=== PATIENT | female | born 1935 | race Caucasian/White ===

== ENCOUNTER → 2018-01-02 | Outpatient (CLI) | payer OTHER ==
[~2018-01-02] MED LIST: ALLO100; ALLO100 PO; ALLO300 PO; ASPI81EC PO; CALCIUM 500 +1 EAC2 PO; FLUO10 PO; FLUO20 PO; FLUT110OIA INH; FOLI400 PO; Fluoxetine HCl10 M1 PO; LEVSOD100 PO; LISHYD2012 PO; Lisinopril2.5 MG; MULVITMINF PO; Micro-K10 MEQ; POTCHL10ER; Zofran4 MG PO
== END ==
LOC: LAB SHORT 12:45 → LAB 12:45
DX: N39.0 Urinary tract infection, site not specified (principal)
CPT/HCPCS: 87077; 87086; 87186

== ENCOUNTER → 2018-08-07 | Outpatient (CLI) | payer OTHER | END | disposition home or self-care (01) | LOC: LAB SHORT 09:30 → LAB 09:30 | DX: R30.0 Dysuria (principal) | CPT/HCPCS: 87086; 87147 ==

== ENCOUNTER → 2018-09-09 | Outpatient (CLI) | payer OTHER | LOC: LAB SHORT 16:52 → LAB 16:52 | DX: N39.0 Urinary tract infection, site not specified (principal) | CPT/HCPCS: 87086 ==

== ENCOUNTER 2019-03-01 13:04 | Emergency (ER) | payer OTHER ==
[~2019-03-01] VITALS: Ht 162.6 cm; Wt 101.6 kg
[2019-03-01 13:50] LABS: BASOPHILS ABSOLUTE AUTO 0.04 K/mm3 (0.00-0.23); BASOPHILS PERCENT AUTO 0 % (0-2); EOSINOPHILS PERCENT AUTO 3 % (0-6); Hematocrit 39.4 % (33.0-51.0); Hemoglobin 12.5 g/dL (11.5-16.0); IMMATURE GRAN ABSOLUTE AUTO 0.03 K/mm3 (0.00-0.10); IMMATURE GRAN PERCENT AUTO 0 % (0-1); LYMPHOCYTES ABSOLUTE AUTO 2.39 K/mm3 (0.84-5.20); LYMPHOCYTES PERCENT AUTO 24 % (21-46); MONOCYTES ABSOLUTE AUTO 1.02 K/mm3 (0.16-1.47); MONOCYTES PERCENT AUTO 10 % (4-13); Mean Corpuscular HGB 30.5 pg (26.0-34.0); Mean Corpuscular HGB Conc 31.7 g/dL (31.5-36.5); Mean Corpuscular Volume 96 fL (80-100); NEUTROPHILS ABSOLUTE AUTO 6.11 K/mm3 (1.96-9.15); NEUTROPHILS PERCENT AUTO 62 % (41-73); Platelet Count 276 K/mm3 (150-400); RDW Coefficient Variation 13.9 % (11.7-14.2); RDW Standard Deviation 48.8 fL (35.1-46.3); White Blood Cell Count 9.89 K/mm3 (4.00-11.30)
[2019-03-01 14:08] LABS: Albumin, Blood 3.2 g/dL (3.4-5.0); Albumin/Globulin Ratio 0.8 (0.8-1.8); Bilirubin, Total 0.5 mg/dL (0.1-1.0); Bun/Creatinine Ratio 18.6 (12.0-20.0); Calcium, Blood 9.5 mg/dL (8.5-10.1); Creatinine, Blood 1.02 mg/dL (0.40-1.00); Globulin, Blood 3.9 g/dL (2.2-4.0); Total Protein, Blood 7.1 g/dL (6.4-8.2)
== END 2019-03-01 17:38 | disposition home or self-care (01) ==
LOC: ER 13:04
PROVIDERS: Physician Assistant
DX: N99.520 Hemorrhage of incontinent external stoma of urinary tract (principal); Z87.891 Personal history of nicotine dependence; Z79.899 Other long term (current) drug therapy
CPT/HCPCS: 36415; 74177; 80053; 82272; 85025; 86850; 86900; 86901; 99284-25; Q9967

== ENCOUNTER 2020-04-14 10:37 | Inpatient (IN) | payer OTHER ==
[~2020-04-14] VITALS: Ht 162.6 cm; Wt 98.3 kg
[~2020-04-14 10:37] MED LIST changes: +EUTHYROX88 MCG PO; -FLUO10 PO; -LEVSOD100 PO; +LISI20 PO; -Lisinopril2.5 MG; +Prozac20 MG PO
[2020-04-14 11:10] LABS: Calcium, Ionized (POC) 1.31 mmol/L (1.10-1.46); Chloride (POC) 115 mmol/L (98-108); Creatinine (POC) 5.6 mg/dL (0.6-1.0); Glucose (ISTAT POC) 153 mg/dL (70-99); Hemoglobin (POC) 14.6 g/dL (12.0-16.0); Potassium (POC) 5.9 mmol/L (3.5-5.5); Sodium (POC) 134 mmol/L (135-148); Total CO2 (POC) 10 mmol/L (21-32)
[2020-04-14] MEDS ORDERED: ALLO100 PO (11:10)
[2020-04-14 11:27] LABS: Source, Urine Catheter
[2020-04-14 11:28] LABS: BASOPHILS ABSOLUTE AUTO 0.07 K/mm3 (0.00-0.23); BASOPHILS PERCENT AUTO 0 % (0-2); EOSINOPHILS PERCENT AUTO 0 % (0-6); Hematocrit 45.3 % (33.0-51.0); Hemoglobin 13.9 g/dL (11.5-16.0); IMMATURE GRAN ABSOLUTE AUTO 0.34 K/mm3 (0.00-0.10); IMMATURE GRAN PERCENT AUTO 2 % (0-1); LYMPHOCYTES ABSOLUTE AUTO 1.15 K/mm3 (0.84-5.20); LYMPHOCYTES PERCENT AUTO 5 % (21-46); MONOCYTES ABSOLUTE AUTO 0.78 K/mm3 (0.16-1.47); MONOCYTES PERCENT AUTO 4 % (4-13); Mean Corpuscular HGB 30.8 pg (26.0-34.0); Mean Corpuscular HGB Conc 30.7 g/dL (31.5-36.5); Mean Corpuscular Volume 100 fL (80-100); Mean Platelet Volume 11.3 fL (9.1-12.4); NEUTROPHILS ABSOLUTE AUTO 19.02 K/mm3 (1.96-9.15); NEUTROPHILS PERCENT AUTO 89 % (41-73); NRBC ABSOLUTE 0.07 K/mm3 (0.00-0.02); NRBC Auto 0.3 /100 WBC (0.0-0.2); Platelet Count 270 K/mm3 (150-400); RDW Coefficient Variation 15.1 % (11.7-14.2); RDW Standard Deviation 53.2 fL (35.1-46.3); Red Blood Cell Count 4.52 M/mm3 (3.80-5.20); White Blood Cell Count 21.36 K/mm3 (4.00-11.30)
[2020-04-14 11:29] LABS: Albumin, Blood 3.3 g/dL (3.4-5.0); Albumin/Globulin Ratio 0.9 (0.8-1.8); Bilirubin, Total 0.4 mg/dL (0.1-1.0); Bun/Creatinine Ratio 22.3 (12.0-20.0); Calcium, Blood 9.8 mg/dL (8.5-10.1); Creatinine, Blood 4.93 mg/dL (0.40-1.00); Globulin, Blood 3.8 g/dL (2.2-4.0); Potassium, Blood 5.8 mmol/L (3.5-5.5); Total Protein, Blood 7.1 g/dL (6.4-8.2)
[2020-04-14 11:37] LABS: Appearance, Urine Clear (Clear); Bilirubin, Urine Neg (Neg); Blood, Urine Neg (Neg); Color, Urine Yellow (P-Yellow); Glucose Qualitative, Urine Neg (Neg); Ketones, Urine Neg (Neg); Leukocyte Esterase, Urine 1+ (Neg); Nitrite, Urine Neg (Neg); Protein, Urine 3+ (Neg); Specific Gravity, Urine 1.025 (1.003-1.022); Urobilinogen, Urine NORM (Normal)
[2020-04-14 11:52] LABS: Amorphous Mod (0-Heavy); Bacteria Few /hpf; Hyaline Casts 0-2 /lpf (0-2); Red Blood Cells, Urine 0-2 /hpf (0-2); Squamous Epithelial Cells Rare /hpf (Few)
[2020-04-14] MEDS ORDERED: Flovent Disku100 MCG INH ×2 (13:34→13:54)
[2020-04-14 14:14] LABS: Hematocrit 42.8 % (33.0-51.0); Hemoglobin 14.1 g/dL (11.5-16.0)
[2020-04-14 18:57] LABS: Hematocrit 41.8 % (33.0-51.0)
[2020-04-14 19:04] LABS: Albumin, Blood 2.9 g/dL (3.4-5.0); Anion Gap 13 mmol/L (6-16); Blood Urea Nitrogen 106 mg/dL (8-24); Bun/Creatinine Ratio 23.6 (12.0-20.0); CO2, Blood 7 mmol/L (21-32); Calcium, Blood 9.3 mg/dL (8.5-10.1); Chloride, Blood 117 mmol/L (98-108); Creatinine, Blood 4.49 mg/dL (0.40-1.00); Glomerular Filtration Rate 10 (60-); Glucose, Blood 98 mg/dL (70-99); Phosphorus, Blood 5.8 mg/dL (2.5-4.9); Potassium, Blood 5.3 mmol/L (3.5-5.5); Sodium, Blood 137 mmol/L (136-145)
[2020-04-14 20:42] LABS: Base Excess Venous -21.1 mmol/L; Bicarbonate Venous 10.5 mmol/L (24.0-30.0); PO2 Venous 73.5 mmHg (38-42)
[2020-04-14 20:43] LABS: pH Blood Venous 7.12 (7.34-7.37)
[2020-04-15 06:15] LABS: Base Excess Venous -18.8 mmol/L; Bicarbonate Venous 11.9 mmol/L (24.0-30.0); PCO2 Venous 23.1 mmHg (38-42); PO2 Venous 72.8 mmHg (38-42)
[2020-04-15 06:28] LABS: BASOPHILS ABSOLUTE AUTO 0.05 K/mm3 (0.00-0.23); BASOPHILS PERCENT AUTO 0 % (0-2); EOSINOPHILS ABSOLUTE AUTO 0.01 K/mm3 (0.00-0.68); EOSINOPHILS PERCENT AUTO 0 % (0-6); Hematocrit 37.9 % (33.0-51.0); Hemoglobin 12.3 g/dL (11.5-16.0); IMMATURE GRAN ABSOLUTE AUTO 0.33 K/mm3 (0.00-0.10); IMMATURE GRAN PERCENT AUTO 2 % (0-1); LYMPHOCYTES ABSOLUTE AUTO 1.39 K/mm3 (0.84-5.20); LYMPHOCYTES PERCENT AUTO 7 % (21-46); MONOCYTES ABSOLUTE AUTO 1.45 K/mm3 (0.16-1.47); MONOCYTES PERCENT AUTO 7 % (4-13); Mean Corpuscular HGB 30.9 pg (26.0-34.0); Mean Corpuscular HGB Conc 32.5 g/dL (31.5-36.5); Mean Platelet Volume 11.2 fL (9.1-12.4); NEUTROPHILS ABSOLUTE AUTO 18.11 K/mm3 (1.96-9.15); NEUTROPHILS PERCENT AUTO 85 % (41-73); NRBC ABSOLUTE 0.03 K/mm3 (0.00-0.02); NRBC Auto 0.1 /100 WBC (0.0-0.2); Platelet Count 252 K/mm3 (150-400); RDW Coefficient Variation 15.2 % (11.7-14.2); RDW Standard Deviation 50.7 fL (35.1-46.3); Red Blood Cell Count 3.98 M/mm3 (3.80-5.20); White Blood Cell Count 21.34 K/mm3 (4.00-11.30)
[2020-04-15 06:37] LABS: Mean Corpuscular Volume 95 fL (80-100)
[2020-04-15 06:59] LABS: Bun/Creatinine Ratio 27.2 (12.0-20.0); Calcium, Blood 9.6 mg/dL (8.5-10.1); Potassium, Blood 4.9 mmol/L (3.5-5.5)
[2020-04-15 11:18] LABS: Source, Urine Catheter
[2020-04-15 11:22] LABS: Appearance, Urine Clear (Clear); Bilirubin, Urine Neg (Neg); Blood, Urine 2+ (Neg); Color, Urine Yellow (P-Yellow); Glucose Qualitative, Urine Neg (Neg); Ketones, Urine Neg (Neg); Leukocyte Esterase, Urine Neg (Neg); Nitrite, Urine Neg (Neg); Protein, Urine 3+ (Neg); Urobilinogen, Urine NORM (Normal)
[2020-04-15 11:24] LABS: Albumin, Blood 2.5 g/dL (3.4-5.0); Anion Gap 11 mmol/L (6-16); Blood Urea Nitrogen 104 mg/dL (8-24); Bun/Creatinine Ratio 28.3 (12.0-20.0); CO2, Blood 11 mmol/L (21-32); Calcium, Blood 8.8 mg/dL (8.5-10.1); Chloride, Blood 121 mmol/L (98-108); Creatinine, Blood 3.68 mg/dL (0.40-1.00); Glomerular Filtration Rate 12 (60-); Glucose, Blood 77 mg/dL (70-99); Phosphorus, Blood 4.8 mg/dL (2.5-4.9); Potassium, Blood 4.7 mmol/L (3.5-5.5); Sodium, Blood 143 mmol/L (136-145)
[2020-04-15 11:32] LABS: Bacteria Few /hpf; Squamous Epithelial Cells Rare /hpf (Few)
[2020-04-15 11:33] LABS: Amorphous Light (0-Heavy)
[2020-04-15 18:21] LABS: Source, Urine Catheter
[2020-04-15 18:27] LABS: Appearance, Urine Hazy (Clear); Bilirubin, Urine Neg (Neg); Blood, Urine 2+ (Neg); Color, Urine Yellow (P-Yellow); Glucose Qualitative, Urine Neg (Neg); Ketones, Urine Neg (Neg); Leukocyte Esterase, Urine 1+ (Neg); Nitrite, Urine Neg (Neg); Protein, Urine 3+ (Neg); Urobilinogen, Urine NORM (Normal)
[2020-04-15 18:39] LABS: Amorphous Mod (0-Heavy); Bacteria Few /hpf; Red Blood Cells, Urine 0-2 /hpf (0-2); Squamous Epithelial Cells Rare /hpf (Few)
[2020-04-16 09:09] LABS: BASOPHILS ABSOLUTE AUTO 0.04 K/mm3 (0.00-0.23); BASOPHILS PERCENT AUTO 0 % (0-2); EOSINOPHILS ABSOLUTE AUTO 0.09 K/mm3 (0.00-0.68); EOSINOPHILS PERCENT AUTO 1 % (0-6); Hematocrit 33.4 % (33.0-51.0); Hemoglobin 10.5 g/dL (11.5-16.0); IMMATURE GRAN ABSOLUTE AUTO 0.25 K/mm3 (0.00-0.10); IMMATURE GRAN PERCENT AUTO 2 % (0-1); LYMPHOCYTES ABSOLUTE AUTO 1.94 K/mm3 (0.84-5.20); LYMPHOCYTES PERCENT AUTO 13 % (21-46); MONOCYTES ABSOLUTE AUTO 1.11 K/mm3 (0.16-1.47); MONOCYTES PERCENT AUTO 7 % (4-13); Mean Corpuscular HGB Conc 31.4 g/dL (31.5-36.5); Mean Corpuscular Volume 99 fL (80-100); Mean Platelet Volume 11.2 fL (9.1-12.4); NEUTROPHILS ABSOLUTE AUTO 11.56 K/mm3 (1.96-9.15); NEUTROPHILS PERCENT AUTO 77 % (41-73); NRBC ABSOLUTE 0.02 K/mm3 (0.00-0.02); NRBC Auto 0.1 /100 WBC (0.0-0.2); Platelet Count 209 K/mm3 (150-400); RDW Coefficient Variation 15.8 % (11.7-14.2); RDW Standard Deviation 53.8 fL (35.1-46.3); Red Blood Cell Count 3.39 M/mm3 (3.80-5.20); White Blood Cell Count 14.99 K/mm3 (4.00-11.30)
[2020-04-16 09:30] LABS: Albumin, Blood 2.4 g/dL (3.4-5.0); Blood Urea Nitrogen 93 mg/dL (8-24); Bun/Creatinine Ratio 30.2 (12.0-20.0); Calcium, Blood 8.5 mg/dL (8.5-10.1); Chloride, Blood 126 mmol/L (98-108); Creatinine, Blood 3.08 mg/dL (0.40-1.00); Glomerular Filtration Rate 15 (60-); Glucose, Blood 65 mg/dL (70-99); Phosphorus, Blood 4.8 mg/dL (2.5-4.9); Potassium, Blood 4.8 mmol/L (3.5-5.5); Sodium, Blood 147 mmol/L (136-145)
[2020-04-16 09:32] LABS: Anion Gap 12 mmol/L (6-16); CO2, Blood 9 mmol/L (21-32)
[2020-04-16 19:06] LABS: Albumin, Blood 2.3 g/dL (3.4-5.0); Anion Gap 12 mmol/L (6-16); Blood Urea Nitrogen 84 mg/dL (8-24); Bun/Creatinine Ratio 32.6 (12.0-20.0); CO2, Blood 10 mmol/L (21-32); Calcium, Blood 8.6 mg/dL (8.5-10.1); Chloride, Blood 122 mmol/L (98-108); Creatinine, Blood 2.58 mg/dL (0.40-1.00); Glomerular Filtration Rate 19 (60-); Glucose, Blood 73 mg/dL (70-99); Phosphorus, Blood 4.4 mg/dL (2.5-4.9); Potassium, Blood 4.5 mmol/L (3.5-5.5); Sodium, Blood 144 mmol/L (136-145)
[2020-04-17 05:08] LABS: BASOPHILS ABSOLUTE AUTO 0.02 K/mm3 (0.00-0.23); BASOPHILS PERCENT AUTO 0 % (0-2); EOSINOPHILS ABSOLUTE AUTO 0.24 K/mm3 (0.00-0.68); EOSINOPHILS PERCENT AUTO 2 % (0-6); Hematocrit 33.3 % (33.0-51.0); IMMATURE GRAN ABSOLUTE AUTO 0.23 K/mm3 (0.00-0.10); IMMATURE GRAN PERCENT AUTO 2 % (0-1); LYMPHOCYTES ABSOLUTE AUTO 1.75 K/mm3 (0.84-5.20); LYMPHOCYTES PERCENT AUTO 17 % (21-46); MONOCYTES ABSOLUTE AUTO 0.74 K/mm3 (0.16-1.47); MONOCYTES PERCENT AUTO 7 % (4-13); NEUTROPHILS ABSOLUTE AUTO 7.61 K/mm3 (1.96-9.15); NEUTROPHILS PERCENT AUTO 72 % (41-73); NRBC ABSOLUTE 0.02 K/mm3 (0.00-0.02); NRBC Auto 0.2 /100 WBC (0.0-0.2); RDW Coefficient Variation 15.7 % (11.7-14.2); RDW Standard Deviation 51.4 fL (35.1-46.3); Red Blood Cell Count 3.55 M/mm3 (3.80-5.20); White Blood Cell Count 10.59 K/mm3 (4.00-11.30)
[2020-04-17 05:11] LABS: Mean Corpuscular Volume 94 fL (80-100); Mean Platelet Volume 11.8 fL (9.1-12.4); Platelet Count 187 K/mm3 (150-400)
[2020-04-17 05:19] LABS: Albumin, Blood 2.3 g/dL (3.4-5.0); Anion Gap 11 mmol/L (6-16); Blood Urea Nitrogen 74 mg/dL (8-24); Bun/Creatinine Ratio 32.9 (12.0-20.0); CO2, Blood 15 mmol/L (21-32); Calcium, Blood 8.3 mg/dL (8.5-10.1); Chloride, Blood 123 mmol/L (98-108); Creatinine, Blood 2.25 mg/dL (0.40-1.00); Glomerular Filtration Rate 22 (60-); Glucose, Blood 64 mg/dL (70-99); Potassium, Blood 4.2 mmol/L (3.5-5.5); Sodium, Blood 149 mmol/L (136-145)
[2020-04-18 09:46] LABS: BASOPHILS ABSOLUTE AUTO 0.05 K/mm3 (0.00-0.23); BASOPHILS PERCENT AUTO 1 % (0-2); EOSINOPHILS PERCENT AUTO 3 % (0-6); Hematocrit 31.3 % (33.0-51.0); Hemoglobin 10.2 g/dL (11.5-16.0); IMMATURE GRAN ABSOLUTE AUTO 0.39 K/mm3 (0.00-0.10); IMMATURE GRAN PERCENT AUTO 4 % (0-1); LYMPHOCYTES ABSOLUTE AUTO 1.52 K/mm3 (0.84-5.20); LYMPHOCYTES PERCENT AUTO 16 % (21-46); MONOCYTES ABSOLUTE AUTO 0.67 K/mm3 (0.16-1.47); MONOCYTES PERCENT AUTO 7 % (4-13); Mean Corpuscular HGB 30.5 pg (26.0-34.0); Mean Corpuscular HGB Conc 32.6 g/dL (31.5-36.5); Mean Corpuscular Volume 94 fL (80-100); Mean Platelet Volume 11.7 fL (9.1-12.4); NEUTROPHILS ABSOLUTE AUTO 6.72 K/mm3 (1.96-9.15); NEUTROPHILS PERCENT AUTO 70 % (41-73); NRBC ABSOLUTE 0.05 K/mm3 (0.00-0.02); NRBC Auto 0.5 /100 WBC (0.0-0.2); Platelet Count 221 K/mm3 (150-400); RDW Coefficient Variation 15.3 % (11.7-14.2); RDW Standard Deviation 49.5 fL (35.1-46.3); Red Blood Cell Count 3.34 M/mm3 (3.80-5.20); White Blood Cell Count 9.65 K/mm3 (4.00-11.30)
[2020-04-18 10:13] LABS: Albumin, Blood 2.3 g/dL (3.4-5.0); Anion Gap 10 mmol/L (6-16); Blood Urea Nitrogen 46 mg/dL (8-24); Bun/Creatinine Ratio 29.7 (12.0-20.0); CO2, Blood 22 mmol/L (21-32); Calcium, Blood 8.3 mg/dL (8.5-10.1); Chloride, Blood 110 mmol/L (98-108); Creatinine, Blood 1.55 mg/dL (0.40-1.00); Glomerular Filtration Rate 34 (60-); Glucose, Blood 115 mg/dL (70-99); Phosphorus, Blood 2.4 mg/dL (2.5-4.9); Potassium, Blood 3.8 mmol/L (3.5-5.5); Sodium, Blood 142 mmol/L (136-145)
[2020-04-18 10:37] LABS: Influenza A, PCR Negative (NEGATIVE); Influenza B, PCR Negative (NEGATIVE); Resp Syncytial Virus, PCR Negative (NEGATIVE); SARS-Cov-2 (COVID-19) PCR, MMC Negative (NEGATIVE)
[2020-04-18] MEDS ORDERED: SODBIC650 PO (12:07)
== END 2020-04-18 16:02 | DRG 682 ==
LOC: ER 10:37 → MEDS 13:29 → ICUE 21:27 → MEDS 04-15 12:36
PROVIDERS: Emergency Medicine; Family Medicine; Internal Medicine; ADMIT Internal Medicine
DX: N17.9 Acute kidney failure, unspecified (principal); G92 Toxic encephalopathy; A41.9 Sepsis, unspecified organism; E87.2 Acidosis; Z68.41 Body mass index [BMI] 40.0-44.9, adult; Z20.828 Contact with and (suspected) exposure to other viral communicable diseases; R65.10 Systemic inflammatory response syndrome (SIRS) of non-infectious origin without acute organ dysfunction; N18.30 Chronic kidney disease, stage 3 unspecified; I12.9 Hypertensive chronic kidney disease with stage 1 through stage 4 chronic kidney disease, or unspecified chronic kidney disease; E87.5 Hyperkalemia; J44.9 Chronic obstructive pulmonary disease, unspecified; E03.9 Hypothyroidism, unspecified; G47.33 Obstructive sleep apnea (adult) (pediatric); E78.5 Hyperlipidemia, unspecified; R40.2412 Glasgow coma scale score 13-15, at arrival to emergency department; E66.9 Obesity, unspecified; E86.0 Dehydration; Z93.3 Colostomy status; Z99.81 Dependence on supplemental oxygen; Z87.891 Personal history of nicotine dependence
CPT/HCPCS: 0241U; 36415; 51701; 71045; 76770; 80047; 80048; 80053; 80069; 81001; 82803; 83605; 84145; 84439; 85014; 85018; 85025; 87040; 87086; 94660; 94762; 96360; 96361; 97110; 97116; 97162; 97165; 97530; 99285-25; A9270; A9270-GY; C1751; C9113; J0456; J0696; J1650; J7030; J7050; J7070

== ENCOUNTER 2020-05-07 20:42 | Inpatient (IN) | payer OTHER ==
[~2020-05-07] VITALS: Ht 167.6 cm; Wt 108.9 kg
[~2020-05-07 20:42] MED LIST changes: +Flovent Disku100 MCG INH; +SODBIC650 PO
[2020-05-07] MEDS ORDERED: FURO40 PO ×2 (21:13)
[2020-05-07] MEDS ORDERED: PANT40 PO ×2 (21:13)
[2020-05-07] MEDS ORDERED: ALUMINUM H320 MG/5 M PO (21:14)
[2020-05-07] MEDS ORDERED: POTA10T PO ×2 (21:14)
[2020-05-07] MEDS ORDERED: Acetaminophen325 M1 PO ×2 (21:15)
[2020-05-07] MEDS ORDERED: Prozac40 MG PO ×2 (21:16)
[2020-05-07] MEDS ORDERED: LEVSOD88 PO ×2 (21:16)
[2020-05-07] MEDS ORDERED: Flovent Disku100 MCG INH ×2 (21:17)
[2020-05-07 21:47] LABS: BASOPHILS ABSOLUTE AUTO 0.06 K/mm3 (0.00-0.23); BASOPHILS PERCENT AUTO 1 % (0-2); EOSINOPHILS ABSOLUTE AUTO 0.09 K/mm3 (0.00-0.68); EOSINOPHILS PERCENT AUTO 1 % (0-6); Hematocrit 33.9 % (33.0-51.0); Hemoglobin 10.4 g/dL (11.5-16.0); IMMATURE GRAN ABSOLUTE AUTO 0.16 K/mm3 (0.00-0.10); IMMATURE GRAN PERCENT AUTO 2 % (0-1); LYMPHOCYTES ABSOLUTE AUTO 1.17 K/mm3 (0.84-5.20); LYMPHOCYTES PERCENT AUTO 13 % (21-46); MONOCYTES ABSOLUTE AUTO 0.88 K/mm3 (0.16-1.47); MONOCYTES PERCENT AUTO 10 % (4-13); Mean Corpuscular HGB Conc 30.7 g/dL (31.5-36.5); Mean Corpuscular Volume 98 fL (80-100); NEUTROPHILS ABSOLUTE AUTO 6.81 K/mm3 (1.96-9.15); NEUTROPHILS PERCENT AUTO 74 % (41-73); Platelet Count 363 K/mm3 (150-400); RDW Coefficient Variation 14.9 % (11.7-14.2); RDW Standard Deviation 53.3 fL (35.1-46.3); Red Blood Cell Count 3.47 M/mm3 (3.80-5.20); White Blood Cell Count 9.17 K/mm3 (4.00-11.30)
[2020-05-07 22:05] LABS: Bun/Creatinine Ratio 11.2 (12.0-20.0); Calcium, Blood 9.4 mg/dL (8.5-10.1); Creatinine, Blood 1.43 mg/dL (0.40-1.00); Potassium, Blood 3.6 mmol/L (3.5-5.5)
[2020-05-07 22:48] LABS: Source, Urine Clean Catch
[2020-05-07 22:50] LABS: Appearance, Urine Clear (Clear); Bilirubin, Urine Neg (Neg); Blood, Urine 1+ (Neg); Color, Urine Yellow (P-Yellow); Glucose Qualitative, Urine Neg (Neg); Ketones, Urine Neg (Neg); Leukocyte Esterase, Urine 2+ (Neg); Nitrite, Urine Neg (Neg); Protein, Urine 4+ (Neg); Urobilinogen, Urine NORM (Normal)
[2020-05-07 22:56] LABS: Bacteria Mod /hpf; Hyaline Casts 0-2 /lpf (0-2); Red Blood Cells, Urine 0-2 /hpf (0-2); Squamous Epithelial Cells Not Seen /hpf (Few)
[2020-05-08] MEDS ORDERED: LISI20 PO ×2 (00:50)
--- NOTE | 2020-05-08 02:08 | NUR ---
PATIENT ARRIVED ON UNIT FROM ER AT 1230 ON 05/08/20 FOR A LEFT HIP FX. SHE IS ALERT AND ORIENTED X3-4. PATIENT CAN BE CONFUSED WHICH IS HER BASELINE. HER DAUGHTER CAME IN THE ROOM WITH HER AND GAVE MORE DETAILED INFORMATION ABOUT PATIENT'S HX. PATIENT DENIED ANY PAIN AT THIS TIME. VITALS ARE WNL. PATIENT SIGNED BLOOD AND VERBAL RELEASE CONSENT. HER ILEOSTOMY IS IN HER RUQ. SHE REPORTS HAVING THAT ILEOSTOMY SINCE SHE WAS 14 YEARS OLD. IT HAS LIGHT BROWN OUTPUT THAT IS LIQUID. THE STOMA WAS ALSO PASSING GAS. STOMA IS PINK AND INTACT. LEFT LEG HAS STRONG PULSES AND SHE IS ABLE TO WIGGLE TOES. SHE DENIES ANY NUMBNESS OR TINGLING. PEAK PAIN IS WHEN THE LEG IS MOVED OR SHIFTED. CALL LIGHT WITHIN REACH. SHE VERBALIZED UNDERSTANDING OF HOW TO USE CALL LIGHT. BED ALARM IS ON.
--- NOTE | 2020-05-08 03:39 | NUR ---
SHIFT SUMMARY: LEFT HIP FX NO SIGNIFICANT CHANGES SINCE ARRIVING ON UNIT. PATIENT IS ALERT AND ORIENTED X3-4. SHE CAN BE CONFUSED AT TIMES. RE-ORIENTS EASILY WHEN CONFUSED. BED ALARM ON. SHE HAS BEEN NPO SINCE MIDNIGHT. VS ARE WNL AND IS ON 2L OXYGEN ON NC. SHE WEARS OXYGEN AT HOME BETWEEN 1-3L OXYGEN. PAIN IS CONTROLLED WITH PO TYLENOL. SHE DOES HAVE IV NARCOTICS PRN. SHE HAS A KHAN PLACED THAT IS PATENT WITH YELLOW URINE OUTPUT IN KHAN BAG. SHE DENIES ANY NUMBNESS OR TINGLING IN LEFT LEG/HIP. PATIENT IS ABLE TO WIGGLE TOES AND FINGERS. PATIENT HAS BEEN ASLEEP MAJORITY OF THE SHIFT BUT IS EASILY AROUSABLE. CALL LIGHT WITHIN REACH. THE PLAN IS FOR SURGERY TODAY WITH DR. LAWTON.
[2020-05-08 04:18] LABS: BASOPHILS ABSOLUTE AUTO 0.03 K/mm3 (0.00-0.23); BASOPHILS PERCENT AUTO 0 % (0-2); EOSINOPHILS ABSOLUTE AUTO 0.03 K/mm3 (0.00-0.68); EOSINOPHILS PERCENT AUTO 0 % (0-6); Hematocrit 28.8 % (33.0-51.0); IMMATURE GRAN ABSOLUTE AUTO 0.16 K/mm3 (0.00-0.10); IMMATURE GRAN PERCENT AUTO 2 % (0-1); LYMPHOCYTES ABSOLUTE AUTO 1.61 K/mm3 (0.84-5.20); LYMPHOCYTES PERCENT AUTO 16 % (21-46); MONOCYTES ABSOLUTE AUTO 1.06 K/mm3 (0.16-1.47); MONOCYTES PERCENT AUTO 11 % (4-13); Mean Corpuscular HGB 30.3 pg (26.0-34.0); Mean Corpuscular HGB Conc 31.3 g/dL (31.5-36.5); Mean Corpuscular Volume 97 fL (80-100); Mean Platelet Volume 10.3 fL (9.1-12.4); NEUTROPHILS ABSOLUTE AUTO 7.11 K/mm3 (1.96-9.15); NEUTROPHILS PERCENT AUTO 71 % (41-73); Platelet Count 330 K/mm3 (150-400); RDW Coefficient Variation 14.8 % (11.7-14.2); RDW Standard Deviation 52.5 fL (35.1-46.3); Red Blood Cell Count 2.97 M/mm3 (3.80-5.20)
[2020-05-08 04:37] LABS: Albumin, Blood 2.5 g/dL (3.4-5.0); Albumin/Globulin Ratio 0.9 (0.8-1.8); Bilirubin, Total 0.4 mg/dL (0.1-1.0); Bun/Creatinine Ratio 11.9 (12.0-20.0); Calcium, Blood 8.7 mg/dL (8.5-10.1); Creatinine, Blood 1.43 mg/dL (0.40-1.00); Globulin, Blood 2.9 g/dL (2.2-4.0); Potassium, Blood 3.5 mmol/L (3.5-5.5); Total Protein, Blood 5.4 g/dL (6.4-8.2)
--- NOTE | 2020-05-08 08:35 | NUR ---
DR JIANG HERE SEE PT RECENTLY.
--- NOTE | 2020-05-08 14:45 | NUR ---
FAMILY HERE PT MED FOR PAIN WITH SIP OF WATER. PT REMAINS TO BE NPO AT THIS TIME. PAS IN PLACE. IV AT TKO.
--- NOTE | 2020-05-08 15:32 | NUR ---
DR LAWTON RECENTLY TO SEE PT, REPORTS NO SURGERY THAT PT MAY HAVE DIET. SEE ORDERS. PT GIVEN ICE WATER UPON REQ, DENIES OTHER NEED.
--- NOTE | 2020-05-08 17:48 | NUR ---
SHIFT SUMMARY PT NOW EATING DINNER WITHOUT DIFFICULTY. PT BEEN RESTING QUIETLY. PT REPOSITIONED MULT TIMES TODAY, BUT AT TIMES REPORTED SHE DID NOT WANT TO BE REPOSITIONED. PT FAMILY HERE EARLIER TODAY. DR NARAYAN LAWTON HERE TO SEE PT TODAY WHEN FAMILY WAS HERE, NO PLAN FOR SURGERY AT THIS TIME. PT BEEN ASSISTED WITH ADL'S PRN. PT HAS PAS IN PLACE.
--- NOTE | 2020-05-08 17:53 | NUR ---
TELE REMAINS IN PLACE.
--- NOTE | 2020-05-09 03:31 | NUR ---
SHIFT SUMMARY: LEFT HIP FRACTURE PATIENT IS ALERT AND ORIENTED X3 WHILE AWAKE. SHE CAN BE CONFUSED AT TIMES BUT IS EASILY ORIENTED. SHE HAS BEEN ASLEEP MAJORITY OF THE SHIFT BUT IS EASILY AROUSABLE. HER VITALS ARE WNL AND ON 2L OXYGEN WHICH AT BASELINE SHE USES 1-3L OXYGEN AT HOME. PAIN IS CONTROLLED WITH PO TYLENOL AND REPOSITIONING OF PILLOWS. SHE IS TOLERATING PO INTAKE. HER KHAN IS PATENT AND IS DRAINING YELLOW URINE INTO KHAN BAG. NO KINKS IN TUBING. SHE HAS HER SCD'S ON. CALLS APPROPRIATELY. CALL LIGHT WITHIN REACH. PATIENT DENIES NUMBNESS AND TINGLING. SHE IS ABLE TO WIGGLE TOES AND FINGERS. THE PLAN IS TO CONTINUE PAIN CONTROL AND ENCOURAGE INCREASE IN PO FLUIDS WELL INSPIRAMETER USE.
[2020-05-09 04:55] LABS: BASOPHILS ABSOLUTE AUTO 0.04 K/mm3 (0.00-0.23); BASOPHILS PERCENT AUTO 0 % (0-2); EOSINOPHILS ABSOLUTE AUTO 0.13 K/mm3 (0.00-0.68); EOSINOPHILS PERCENT AUTO 1 % (0-6); Hematocrit 29.4 % (33.0-51.0); IMMATURE GRAN ABSOLUTE AUTO 0.17 K/mm3 (0.00-0.10); IMMATURE GRAN PERCENT AUTO 2 % (0-1); LYMPHOCYTES ABSOLUTE AUTO 1.29 K/mm3 (0.84-5.20); LYMPHOCYTES PERCENT AUTO 14 % (21-46); MONOCYTES ABSOLUTE AUTO 1.16 K/mm3 (0.16-1.47); MONOCYTES PERCENT AUTO 13 % (4-13); Mean Corpuscular HGB 30.9 pg (26.0-34.0); Mean Corpuscular HGB Conc 30.6 g/dL (31.5-36.5); Mean Corpuscular Volume 101 fL (80-100); Mean Platelet Volume 10.3 fL (9.1-12.4); NEUTROPHILS ABSOLUTE AUTO 6.46 K/mm3 (1.96-9.15); NEUTROPHILS PERCENT AUTO 70 % (41-73); Platelet Count 306 K/mm3 (150-400); RDW Coefficient Variation 14.7 % (11.7-14.2); RDW Standard Deviation 55.1 fL (35.1-46.3); Red Blood Cell Count 2.91 M/mm3 (3.80-5.20); White Blood Cell Count 9.25 K/mm3 (4.00-11.30)
[2020-05-09 05:31] LABS: Bun/Creatinine Ratio 14.2 (12.0-20.0); Creatinine, Blood 1.27 mg/dL (0.40-1.00); Potassium, Blood 3.6 mmol/L (3.5-5.5)
--- NOTE | 2020-05-09 19:48 | NUR ---
END OF SHIFT SUMMARY: PATIENT ALERT AND ORIENTED WITH SOME FORGETFULNESS AT THE END OF SHIFT. PATIENT REPORTS HIGH PAIN WITH REPOSITION AND MOBILITY IN THE LEFT HIP. PATIENT AND FAMILY WORKED WITH PT TODAY TO GET UP TO THE CHAIR AND DISCUSS AMBULATION AND MOVEMENT. PATIENT AND DAUGHTER ARE REQUESTING THAT THE PATIENT BE DISCHARGED TO HOME WITH H/H. THE DAUGHTER REPORTS THAT TWO PEOPLE WILL BE AT THE HOME TO ASSIST THE PATIENT ( AND ONE OF THE PATIENT'S DAUGHTERS). THE DAUGHTER WAS ATTENTIVE AND PARTICIPATED IN HELPING THE PATIENT WITH TRANSFERS AND REPOSITIONING IN THE BED. PATIENT REPORTED THAT SHE CARES FOR HER OSTOMY HERSELF. PATIENT REPORTED A DECREASE IN APPETITE, BUT WAS ABLE TO EAT BREAKFAST AND DINNER. PATIENT UTILIZED 2L VIA NC THROUGHOUT THE SHIFT. PATIENT UTILIZED HER HOME CPAP LAST NIGHT.
--- NOTE | 2020-05-10 04:58 | NUR ---
SHIFT SUMMARY PT ALERT AND ORIENT W/ SOME FORGETFULNESS. SHE REPORTS SEEING HER WALKING AROUND THE ROOM. PT EASILY TO REORIENT. SHE REPORTS MINIMAL PAIN. PAIN MANAGED WITH TYENOL Q6. REPOSITIONED Q2. VSS. SHE WAS HYPOTENSIVE AT THE BEGINNING OF THE SHIFT. CALLED ABIMBOLA BOSS FLUID ORDERED. INFUSED AND BP IMPROVED BUT STILL LOW. BP WAS 97/63 THIS MORNING. PT DENIES CHEST PAIN/PRESSURE, SOB, NUMBNESS AND TINGLING SENSATION. SHE ALSO DENIES NAUSEA AND VOMITING. ENCOURAGE PO FLUIDS. SHE SLEPT GOOD T/O SHIFT. SHE USED HER CPAP MACHINE. OSTOMY IN PLACED AND INTACT. CALL LIGHT W/IN REACH.
[2020-05-10] MEDS ORDERED: XARELTO20 MG PO ×2 (09:43)
[2020-05-10] MEDS ORDERED: TRAM50 PO ×2 (09:44)
--- NOTE | 2020-05-10 15:54 | NUR ---
0187 DISCHARGE DISCHARGE TO HOME WITH DAUGHTER. REVIEWED DISCHARGE INSTRUCTIONS AND PATIENT AND DAUGHTER VERBALIZE UNDERSTANDING OF. PT MODERATE 2 PERSON ASSIST TO WHEELCHAIR. GAIT BELT SENT HOME WITH PATIENT AND PATIENTS DAUGHTER EDUCATED ON HOW TO USE GAIT BELT.
[2020-05-10] MEDS ORDERED: ALLOPURINOL100 M1 PO (18:06)
[2020-05-10] MEDS ORDERED: LISI5 PO (18:07)
[2020-05-10] MEDS ORDERED: ZESTRIL40 M1 PO (20:09)
== END 2020-05-10 16:20 | disposition home or self-care (01) | DRG 536 ==
LOC: ER 20:42 → SURS 23:44 → ER 05-08 00:08 → SURS 05-08 00:08
PROVIDERS: Emergency Medicine; Internal Medicine; ADMIT Internal Medicine
DX: S72.112A Displaced fracture of greater trochanter of left femur, initial encounter for closed fracture (principal); M97.02XA Periprosthetic fracture around internal prosthetic left hip joint, initial encounter; E03.9 Hypothyroidism, unspecified; E78.5 Hyperlipidemia, unspecified; Z20.822 Contact with and (suspected) exposure to COVID-19; F32.9 Major depressive disorder, single episode, unspecified; G47.33 Obstructive sleep apnea (adult) (pediatric); I12.9 Hypertensive chronic kidney disease with stage 1 through stage 4 chronic kidney disease, or unspecified chronic kidney disease; N18.30 Chronic kidney disease, stage 3 unspecified; I48.91 Unspecified atrial fibrillation; J44.9 Chronic obstructive pulmonary disease, unspecified; W18.30XA Fall on same level, unspecified, initial encounter; Z87.891 Personal history of nicotine dependence; Z93.3 Colostomy status; Z99.81 Dependence on supplemental oxygen; F03.90 Unspecified dementia, unspecified severity, without behavioral disturbance, psychotic disturbance, mood disturbance, and anxiety
CPT/HCPCS: 36415; 70450; 72125; 72128; 72131; 72170; 73030; 73552; 80048; 80053; 81001; 85025; 87077; 87086; 87186; 93005; 93010; 93306; 94640; 94760; 97110; 97162; 99285-25; A9270; J0696; J7030; P9612

== ENCOUNTER 2020-05-10 17:48 | Observation (INO) | payer OTHER ==
[~2020-05-10] VITALS: Ht 167.6 cm; Wt 98.2 kg
[~2020-05-10 17:48] MED LIST changes: +ALUMINUM H320 MG/5 M PO; +Acetaminophen325 M1 PO; +FURO40 PO; +LEVSOD88 PO; +PANT40 PO; +POTA10T PO; +Prozac40 MG PO; +TRAM50 PO; +XARELTO20 MG PO
[2020-05-10] MEDS ORDERED: ALLOPURINOL100 M1 PO (18:06)
[2020-05-10] MEDS ORDERED: LISI5 PO (18:07)
[2020-05-10] MEDS ORDERED: ZESTRIL40 M1 PO (20:09)
[2020-05-10 22:09] LABS: BASOPHILS ABSOLUTE AUTO 0.04 K/mm3 (0.00-0.23); BASOPHILS PERCENT AUTO 0 % (0-2); EOSINOPHILS PERCENT AUTO 0 % (0-6); Hematocrit 26.2 % (33.0-51.0); Hemoglobin 8.2 g/dL (11.5-16.0); IMMATURE GRAN ABSOLUTE AUTO 0.22 K/mm3 (0.00-0.10); IMMATURE GRAN PERCENT AUTO 2 % (0-1); LYMPHOCYTES ABSOLUTE AUTO 1.13 K/mm3 (0.84-5.20); LYMPHOCYTES PERCENT AUTO 9 % (21-46); MONOCYTES PERCENT AUTO 7 % (4-13); Mean Corpuscular HGB 30.1 pg (26.0-34.0); Mean Corpuscular HGB Conc 31.3 g/dL (31.5-36.5); Mean Platelet Volume 10.4 fL (9.1-12.4); NEUTROPHILS ABSOLUTE AUTO 10.13 K/mm3 (1.96-9.15); NEUTROPHILS PERCENT AUTO 82 % (41-73); Platelet Count 283 K/mm3 (150-400); RDW Coefficient Variation 14.5 % (11.7-14.2); Red Blood Cell Count 2.72 M/mm3 (3.80-5.20); White Blood Cell Count 12.42 K/mm3 (4.00-11.30)
[2020-05-10 22:10] LABS: Mean Corpuscular Volume 96 fL (80-100)
[2020-05-10 22:29] LABS: Albumin, Blood 2.1 g/dL (3.4-5.0); Albumin/Globulin Ratio 0.7 (0.8-1.8); Bilirubin, Total 0.5 mg/dL (0.1-1.0); Bun/Creatinine Ratio 16.2 (12.0-20.0); Calcium, Blood 8.7 mg/dL (8.5-10.1); Creatinine, Blood 1.05 mg/dL (0.40-1.00); Globulin, Blood 3.1 g/dL (2.2-4.0); Potassium, Blood 4.2 mmol/L (3.5-5.5); Total Protein, Blood 5.2 g/dL (6.4-8.2)
--- NOTE | 2020-05-10 23:40 | NUR ---
PT NEW ADMIT FROM ER FOR LEFT HIP FX. PT S/O, VSS. PT REP A SLIDING FALL AT HOME AFTER DC FROM HOSPITAL TODAY. BRUISING NOTED TO LEFT HIP, PT MOVES ALL EXT, DENIES N/T, CAP REFILL WNL. PT REP LEFT HIP PAINFUL W/MVMT, REP ALISSON AT REST; DECLINES NNED FOR PAIN MEDS A THIS TIME. PT ORIENTED TO ROOM/CALL LIGHT, BED ALARM ON. WILL MONITOR AND TX PER ORDERS.
--- NOTE | 2020-05-11 06:51 | NUR ---
PT READMIT FOR LEFT HIP FX. PT VSS, IS A/O FORGETFUL AT TIMES, REORIENTS EASILY. PT IS PAINFUL W/MVMT, DECLINED NEED FOR PAIN MEDS. STRAIGHT CATH DONE X1 R/T RETENTION; PT ALISSON WELL. IVF CONT PER ORDERS. PLAN PT/OT TODAY AND AWAIT D/C PLANNING.
[2020-05-11 10:57] LABS: Influenza A, PCR Negative (NEGATIVE); Influenza B, PCR Negative (NEGATIVE); Resp Syncytial Virus, PCR Negative (NEGATIVE); SARS-Cov-2 (COVID-19) PCR, MMC Negative (NEGATIVE)
--- NOTE | 2020-05-11 11:57 | NUR ---
KHAN CATHETER PLACED DUE TO URINARY RETENTION. RETURN OF 400 ML CLEAR OLI URINE
--- NOTE | 2020-05-11 16:25 | NUR ---
REPORT PHONED TO OLI AT [facility]. PTS DAUGHTER ND PRESENT AT BEDSIDE AND AWARE OF PLANS TO TRANSFER
--- NOTE | 2020-05-11 16:58 | NUR ---
8816 DISCHARGED VIA GURNEY WITH [facility] STAFF TO BE TRANSPORTED TO [facility]. PTS FAMILY PRESENT AT TIME OF TRANSPORT
== END 2020-05-11 16:57 ==
LOC: ER 17:48 → SURS 17:49 → ERHOLD 17:49 → SURS 17:50 → EDBEDREQ 22:05 → EDBEDREQSVC 22:05 → ERHOLD 22:11 → ER 22:11 → SURS 22:11 → ERHOLD 23:20 → SURS 23:20
PROVIDERS: Internal Medicine; ADMIT Internal Medicine
DX: S72.112A Displaced fracture of greater trochanter of left femur, initial encounter for closed fracture (principal); M97.02XA Periprosthetic fracture around internal prosthetic left hip joint, initial encounter; Z91.81 History of falling; R54 Age-related physical debility; I48.91 Unspecified atrial fibrillation; I12.9 Hypertensive chronic kidney disease with stage 1 through stage 4 chronic kidney disease, or unspecified chronic kidney disease; N18.30 Chronic kidney disease, stage 3 unspecified; J44.9 Chronic obstructive pulmonary disease, unspecified; R33.9 Retention of urine, unspecified; G47.33 Obstructive sleep apnea (adult) (pediatric); E03.9 Hypothyroidism, unspecified; F32.9 Major depressive disorder, single episode, unspecified; Z79.01 Long term (current) use of anticoagulants; M19.90 Unspecified osteoarthritis, unspecified site; K21.9 Gastro-esophageal reflux disease without esophagitis; Z96.643 Presence of artificial hip joint, bilateral; Z93.3 Colostomy status; W05.0XXA Fall from non-moving wheelchair, initial encounter; Z20.822 Contact with and (suspected) exposure to COVID-19; Z99.81 Dependence on supplemental oxygen
CPT/HCPCS: 0241U; 36415; 51701; 73502; 80053; 83880; 85025; 97110; 97162; 97165; 97530; 97535; 99285-25; A9270; G0378; J7030

== ENCOUNTER 2020-05-27 01:26 | Emergency (ER) | payer OTHER ==
[~2020-05-27] VITALS: Ht 167.6 cm; Wt 111.1 kg
[~2020-05-27 01:26] MED LIST changes: +ALLOPURINOL100 M1 PO; +LISI5 PO; +ZESTRIL40 M1 PO
[2020-05-27 01:49] LABS: Source, Urine Catheter
[2020-05-27 02:00] LABS: Bilirubin, Urine Neg (Neg); Blood, Urine Neg (Neg); Glucose Qualitative, Urine Neg (Neg); Ketones, Urine Neg (Neg); Leukocyte Esterase, Urine 1+ (Neg); Nitrite, Urine Neg (Neg); Protein, Urine 3+ (Neg); Specific Gravity, Urine 1.015 (1.003-1.022); Urobilinogen, Urine NORM (Normal)
[2020-05-27 02:02] LABS: Appearance, Urine Clear (Clear); Color, Urine Yellow (P-Yellow)
[2020-05-27 02:04] LABS: Amorphous Mod (0-Heavy); Bacteria Few /hpf; Red Blood Cells, Urine Not Seen /hpf (0-2); Squamous Epithelial Cells Not Seen /hpf (Few)
== END 2020-05-27 02:36 | disposition home or self-care (01) ==
LOC: ER 01:26
PROVIDERS: Emergency Medicine
DX: R33.9 Retention of urine, unspecified (principal); I12.9 Hypertensive chronic kidney disease with stage 1 through stage 4 chronic kidney disease, or unspecified chronic kidney disease; N18.30 Chronic kidney disease, stage 3 unspecified; E78.5 Hyperlipidemia, unspecified; J44.9 Chronic obstructive pulmonary disease, unspecified; I48.91 Unspecified atrial fibrillation; K21.9 Gastro-esophageal reflux disease without esophagitis; E03.9 Hypothyroidism, unspecified; Z87.891 Personal history of nicotine dependence; Z79.01 Long term (current) use of anticoagulants; Z79.899 Other long term (current) drug therapy
CPT/HCPCS: 51702; 81001; 87077; 87086; 87186; 99283-25

== ENCOUNTER 2020-06-05 21:03 | Emergency (ER) | payer OTHER ==
[~2020-06-05] VITALS: Ht 160 cm; Wt 106.6 kg
[2020-06-06 04:08] LABS: Source, Urine Catheter
[2020-06-06 04:10] LABS: Bilirubin, Urine Neg (Neg); Blood, Urine 4+ (Neg); Glucose Qualitative, Urine Neg (Neg); Ketones, Urine Neg (Neg); Leukocyte Esterase, Urine 2+ (Neg); Nitrite, Urine Pos (Neg); Protein, Urine 3+ (Neg); Urobilinogen, Urine NORM (Normal)
[2020-06-06 04:15] LABS: Appearance, Urine Clear (Clear); Color, Urine Yellow (P-Yellow)
[2020-06-06 04:16] LABS: Amorphous Mod (0-Heavy); Bacteria Mod /hpf; Squamous Epithelial Cells Not Seen /hpf (Few)
[2020-06-06 06:17] LABS: Bun/Creatinine Ratio 25.2 (12.0-20.0); Calcium, Blood 9.6 mg/dL (8.5-10.1); Creatinine, Blood 1.63 mg/dL (0.40-1.00); Potassium, Blood 4.9 mmol/L (3.5-5.5)
== END 2020-06-06 10:47 | disposition home or self-care (01) ==
LOC: ER 21:03
PROVIDERS: Physician Assistant; Student in an Organized Health Care Education/Training Program
DX: T83.511A Infection and inflammatory reaction due to indwelling urethral catheter, initial encounter (principal); N39.0 Urinary tract infection, site not specified; J44.9 Chronic obstructive pulmonary disease, unspecified; I12.9 Hypertensive chronic kidney disease with stage 1 through stage 4 chronic kidney disease, or unspecified chronic kidney disease; N18.30 Chronic kidney disease, stage 3 unspecified; K21.9 Gastro-esophageal reflux disease without esophagitis; I48.91 Unspecified atrial fibrillation; E03.9 Hypothyroidism, unspecified; Z87.891 Personal history of nicotine dependence; Z79.899 Other long term (current) drug therapy; E78.5 Hyperlipidemia, unspecified
CPT/HCPCS: 36415; 51702; 80048; 81001; 87086; 96365-59; 96366-59; 99283-25; J3370; J7050

== ENCOUNTER 2020-06-07 00:08 | Day surgery (SDC) | payer OTHER ==
[~2020-06-07] VITALS: Ht 160 cm; Wt 96.2 kg
--- NOTE | 2020-06-07 14:20 | NUR ---
SPOKE WITH TERELL AT DR. CABAN'S OFFICE. PT'S DTR IS INQUIRING ABOUT BEING ABLE TO HAVE PARESH'S IV ANTIBIOTICS HAPPEN AT HOME IT IS VERY DIFFICULT FOR HER GET TO [place]. SHE USES A ZANA LIFT AT HOME. SHE WAS ABLE TO PIVOT TRANSFER WITH THREE PERSON ASSIST TODAY. PARESH IS CURRENTLY RECEIVING [employer] [facility]. TERELL STATES THAT SHE WILL GET A MESSAGE BACK TO DR. CABAN'S OFFICE STAFF.
== END 2020-06-07 10:46 | disposition home or self-care (01) ==
LOC: ATC 00:08
DX: T83.511A Infection and inflammatory reaction due to indwelling urethral catheter, initial encounter (principal); N39.0 Urinary tract infection, site not specified; B95.2 Enterococcus as the cause of diseases classified elsewhere; I12.9 Hypertensive chronic kidney disease with stage 1 through stage 4 chronic kidney disease, or unspecified chronic kidney disease; N18.30 Chronic kidney disease, stage 3 unspecified; J44.9 Chronic obstructive pulmonary disease, unspecified; E03.9 Hypothyroidism, unspecified; M19.90 Unspecified osteoarthritis, unspecified site; K21.9 Gastro-esophageal reflux disease without esophagitis; I48.91 Unspecified atrial fibrillation; E78.5 Hyperlipidemia, unspecified; G47.33 Obstructive sleep apnea (adult) (pediatric); Z79.899 Other long term (current) drug therapy; Z87.891 Personal history of nicotine dependence; Z79.01 Long term (current) use of anticoagulants; Z99.81 Dependence on supplemental oxygen
CPT/HCPCS: 96365; J3370

== ENCOUNTER 2020-06-08 00:56 | Day surgery (SDC) | payer OTHER ==
[2020-06-08 09:56] LABS: Creatinine, Blood 1.48 mg/dL (0.40-1.00)
[2020-06-08 09:59] LABS: Vancomycin, Trough 20.6 ug/mL (5.0-10.0)
--- NOTE | 2020-06-08 10:08 | NUR ---
SPOKE WITH GLEN IN PHARMACY. PT WILL NOT RECEIVE A DOSE TODAY HER VANCO TROUGH IS 20.6. PT WILL RETURN TOMORROW FOR ANOTHER DOSE OF VANCOMYCIN. PT'S DTR STATES SHE WAS CONTACTED BY [facility] AND SHE IS UNSURE OF WHAT THE PROCESS IS TO GET HOME INFUSIONS. SHE STATES JED STATES THEY WILL HAVE TO DISCHARGE HER FROM SERVICES SHE IS UNABLE TO COMETO THE INFUSION CENTER AND BE ON AT THE SAME TIME.
--- NOTE | 2020-06-08 16:20 | NUR ---
SPOKE WITH SAKSHI AT [facility] ([place]). SHE STATES THAT SHE HAS SENT EMAILS TO THEIR CORPORATE BILLING OFFICE AND SPOKEN WITH HER DIRECTOR RE: CURRENT HH SERVICES AND PT RECEIVING IV ANTIBIOTCS IN THE [place]. SHE HAS NOT HEARD BACK FROM THE CORPORATE OFFICE OF YET. SAKSHI REPORTS THAT EVEN IF THEY WERE ABLE TO GET AN ORDER FOR PT TO HAVE HOME IV ANTIBIOTIC INFUSIONS, PT WOULD LIKELY BE DONE WITH HER INFUSIONS BEFORE THE IV ANTIBIOTICS COULD BE SET UP AT HOME. SAKSHI STATES CURRENT PLAN IS TO HAVE [employer] DISCARGE HER FROM SERVICES ON THURSDAY AND READMIT HER ONCE IV INFUSIONS ARE COMPLETE. CALLED PT'S DTR, SWETHA, AND UPDATED HER ON CURRENT PLAN TO CONTINUE WITH IV MEDS AT THE [place] OVER THE WEEKEND. SWETHA IN AGREEMENT WITH PLAN AT THIS TIME.
== END 2020-06-08 10:33 | disposition home or self-care (01) ==
LOC: ATC 00:56
PROVIDERS: Student in an Organized Health Care Education/Training Program
DX: T83.511A Infection and inflammatory reaction due to indwelling urethral catheter, initial encounter (principal); N39.0 Urinary tract infection, site not specified; B96.89 Other specified bacterial agents as the cause of diseases classified elsewhere; I12.9 Hypertensive chronic kidney disease with stage 1 through stage 4 chronic kidney disease, or unspecified chronic kidney disease; N18.30 Chronic kidney disease, stage 3 unspecified; J44.9 Chronic obstructive pulmonary disease, unspecified; E03.9 Hypothyroidism, unspecified; M19.90 Unspecified osteoarthritis, unspecified site; K21.9 Gastro-esophageal reflux disease without esophagitis; Z87.891 Personal history of nicotine dependence
CPT/HCPCS: 80202; 82565; 99211; J3370

== ENCOUNTER 2020-06-09 00:22 | Day surgery (SDC) | payer OTHER ==
--- NOTE | 2020-06-09 14:54 | NUR ---
VANCO TROUGH DRAWN PRIOR TO STARTING IV VANCOMYCIN. PER GLEN IN PHARMACY, OK TO HANG IV ANTIBIOTC BEFORE RESULT IS BACK. LAST DOSE OF VANCO WAS 06/07/20.
[2020-06-09 15:21] LABS: Creatinine, Blood 1.64 mg/dL (0.40-1.00); Vancomycin, Trough 16.4 ug/mL (5.0-10.0)
--- NOTE | 2020-06-09 15:40 | NUR ---
SPOKE WITH GLEN IN PHARMACY. NO VANCO DOSE DUE TOMORROW. WILL HAVE VANCO TROUGH AND CREAT DRAWN ON Thursday06/11/20. PT AND DTR NOTIFIED. DISCUSSED OPTION OF LEAVING IV OR REMOVING IT SO SHE CAN HAVE A BREAK UNTIL THURSDAY WITHOUT THE IV. PT CHOSE TO HAVE IV REMOVED TODAY.
== END 2020-06-09 15:40 | disposition home or self-care (01) ==
LOC: ATC 00:22
PROVIDERS: Student in an Organized Health Care Education/Training Program
DX: T83.511A Infection and inflammatory reaction due to indwelling urethral catheter, initial encounter (principal); N39.0 Urinary tract infection, site not specified; B95.2 Enterococcus as the cause of diseases classified elsewhere; I12.9 Hypertensive chronic kidney disease with stage 1 through stage 4 chronic kidney disease, or unspecified chronic kidney disease; N18.30 Chronic kidney disease, stage 3 unspecified; E78.5 Hyperlipidemia, unspecified; J44.9 Chronic obstructive pulmonary disease, unspecified; G47.33 Obstructive sleep apnea (adult) (pediatric); K21.9 Gastro-esophageal reflux disease without esophagitis; E03.9 Hypothyroidism, unspecified; I48.91 Unspecified atrial fibrillation; Z99.81 Dependence on supplemental oxygen; Z79.01 Long term (current) use of anticoagulants; Z87.891 Personal history of nicotine dependence
CPT/HCPCS: 80202; 82565; 96365; J3370; J7050

== ENCOUNTER 2020-06-10 00:41 | Day surgery (SDC) | payer OTHER | END 2020-06-10 22:41 | disposition home or self-care (01) | LOC: ATC 00:41 | DX: T83.518A Infection and inflammatory reaction due to other urinary catheter, initial encounter (principal); N39.0 Urinary tract infection, site not specified; I12.9 Hypertensive chronic kidney disease with stage 1 through stage 4 chronic kidney disease, or unspecified chronic kidney disease; N18.30 Chronic kidney disease, stage 3 unspecified; E78.5 Hyperlipidemia, unspecified; J44.9 Chronic obstructive pulmonary disease, unspecified; G47.33 Obstructive sleep apnea (adult) (pediatric); K21.9 Gastro-esophageal reflux disease without esophagitis; I48.91 Unspecified atrial fibrillation; E03.9 Hypothyroidism, unspecified; Z87.891 Personal history of nicotine dependence ==

== ENCOUNTER 2020-06-11 00:16 | Day surgery (SDC) | payer OTHER ==
[2020-06-11 09:26] LABS: Creatinine, Blood 1.64 mg/dL (0.40-1.00); Vancomycin, Trough 19.8 ug/mL (5.0-10.0)
--- NOTE | 2020-06-11 11:47 | NUR ---
PT'S IV WRAPPED WITH GAUZE AND COBAN. PT TO RETURN TO [place] ON THURSDAY FOR HER LAST DOSE OF VANCO. NO LABS WILL BE REQUIRED ON THURSDAY PER NICOLE, PHARMACIST.
== END 2020-06-11 10:30 | disposition home or self-care (01) ==
LOC: ATC 00:16
PROVIDERS: Student in an Organized Health Care Education/Training Program
DX: T83.511A Infection and inflammatory reaction due to indwelling urethral catheter, initial encounter (principal); N39.0 Urinary tract infection, site not specified; B95.2 Enterococcus as the cause of diseases classified elsewhere; I12.9 Hypertensive chronic kidney disease with stage 1 through stage 4 chronic kidney disease, or unspecified chronic kidney disease; N18.30 Chronic kidney disease, stage 3 unspecified; J44.9 Chronic obstructive pulmonary disease, unspecified; E03.9 Hypothyroidism, unspecified; M19.90 Unspecified osteoarthritis, unspecified site; E78.5 Hyperlipidemia, unspecified; G47.33 Obstructive sleep apnea (adult) (pediatric); I48.91 Unspecified atrial fibrillation; K21.9 Gastro-esophageal reflux disease without esophagitis; Z87.891 Personal history of nicotine dependence; Z79.01 Long term (current) use of anticoagulants; Z79.899 Other long term (current) drug therapy; Z99.81 Dependence on supplemental oxygen
CPT/HCPCS: 80202; 82565; 96365; J3370

== ENCOUNTER 2020-06-12 00:41 | Day surgery (SDC) | payer OTHER | END 2020-06-12 23:23 | disposition home or self-care (01) | LOC: ATC 00:41 | DX: T83.518A Infection and inflammatory reaction due to other urinary catheter, initial encounter (principal); N39.0 Urinary tract infection, site not specified; I12.9 Hypertensive chronic kidney disease with stage 1 through stage 4 chronic kidney disease, or unspecified chronic kidney disease; N18.30 Chronic kidney disease, stage 3 unspecified; E78.5 Hyperlipidemia, unspecified; J44.9 Chronic obstructive pulmonary disease, unspecified; G47.33 Obstructive sleep apnea (adult) (pediatric); K21.9 Gastro-esophageal reflux disease without esophagitis; I48.91 Unspecified atrial fibrillation; E03.9 Hypothyroidism, unspecified; Z87.891 Personal history of nicotine dependence ==

== ENCOUNTER 2020-06-13 | Day surgery (SDC) | payer OTHER | END 2020-06-13 10:15 | disposition home or self-care (01) | LOC: ATC | DX: T83.518A Infection and inflammatory reaction due to other urinary catheter, initial encounter (principal); N39.0 Urinary tract infection, site not specified; B95.2 Enterococcus as the cause of diseases classified elsewhere; I12.9 Hypertensive chronic kidney disease with stage 1 through stage 4 chronic kidney disease, or unspecified chronic kidney disease; N18.30 Chronic kidney disease, stage 3 unspecified; J44.9 Chronic obstructive pulmonary disease, unspecified; G47.33 Obstructive sleep apnea (adult) (pediatric); K21.9 Gastro-esophageal reflux disease without esophagitis; I48.91 Unspecified atrial fibrillation; E03.9 Hypothyroidism, unspecified; Y73.1 Therapeutic (nonsurgical) and rehabilitative gastroenterology and urology devices associated with adverse incidents; Z79.01 Long term (current) use of anticoagulants; Z96.643 Presence of artificial hip joint, bilateral; Z87.891 Personal history of nicotine dependence | CPT/HCPCS: 96365; J3370 ==

== ENCOUNTER 2020-06-15 15:40 | Inpatient (IN) | payer OTHER, MEDICARE ==
[~2020-06-15] VITALS: Ht 162.6 cm; Wt 89.8 kg
[2020-06-15 16:25] LABS: Source, Urine Clean Catch
[2020-06-15 16:29] LABS: Appearance, Urine Cloudy (Clear); Bilirubin, Urine Neg (Neg); Blood, Urine 3+ (Neg); Color, Urine Yellow (P-Yellow); Glucose Qualitative, Urine Neg (Neg); Ketones, Urine Neg (Neg); Leukocyte Esterase, Urine 3+ (Neg); Nitrite, Urine Neg (Neg); Protein, Urine 3+ (Neg); Urobilinogen, Urine NORM (Normal)
[2020-06-15 16:30] LABS: BASOPHILS ABSOLUTE AUTO 0.07 K/mm3 (0.00-0.23); BASOPHILS PERCENT AUTO 1 % (0-2); EOSINOPHILS ABSOLUTE AUTO 0.01 K/mm3 (0.00-0.68); EOSINOPHILS PERCENT AUTO 0 % (0-6); Hematocrit 36.2 % (33.0-51.0); IMMATURE GRAN ABSOLUTE AUTO 0.63 K/mm3 (0.00-0.10); IMMATURE GRAN PERCENT AUTO 4 % (0-1); LYMPHOCYTES ABSOLUTE AUTO 1.82 K/mm3 (0.84-5.20); LYMPHOCYTES PERCENT AUTO 13 % (21-46); MONOCYTES ABSOLUTE AUTO 0.47 K/mm3 (0.16-1.47); MONOCYTES PERCENT AUTO 3 % (4-13); Mean Corpuscular HGB 30.4 pg (26.0-34.0); Mean Corpuscular HGB Conc 30.4 g/dL (31.5-36.5); Mean Corpuscular Volume 100 fL (80-100); Mean Platelet Volume 9.8 fL (9.1-12.4); NEUTROPHILS ABSOLUTE AUTO 11.29 K/mm3 (1.96-9.15); NEUTROPHILS PERCENT AUTO 79 % (41-73); NRBC ABSOLUTE 0.11 K/mm3 (0.00-0.02); NRBC Auto 0.8 /100 WBC (0.0-0.2); Platelet Count 467 K/mm3 (150-400); RDW Coefficient Variation 15.9 % (11.7-14.2); Red Blood Cell Count 3.62 M/mm3 (3.80-5.20); White Blood Cell Count 14.29 K/mm3 (4.00-11.30)
[2020-06-15 16:37] LABS: Bacteria Many /hpf; Squamous Epithelial Cells Few /hpf (Few); White Blood Cells, Urine TNTC /hpf (0-5); Yeast/Fungi Urine Many /hpf
[2020-06-15 16:53] LABS: Albumin, Blood 3.3 g/dL (3.4-5.0); Albumin/Globulin Ratio 0.9 (0.8-1.8); Bilirubin, Total 0.6 mg/dL (0.1-1.0); Bun/Creatinine Ratio 17.2 (12.0-20.0); Calcium, Blood 10.4 mg/dL (8.5-10.1); Creatinine, Blood 3.19 mg/dL (0.40-1.00); Globulin, Blood 3.7 g/dL (2.2-4.0); Potassium, Blood 6.7 mmol/L (3.5-5.5)
[2020-06-16 02:46] LABS: Source, Urine Catheter
[2020-06-16 02:49] LABS: Appearance, Urine Clear (Clear); Bilirubin, Urine Neg (Neg); Blood, Urine 1+ (Neg); Color, Urine Yellow (P-Yellow); Glucose Qualitative, Urine Neg (Neg); Ketones, Urine Neg (Neg); Leukocyte Esterase, Urine 3+ (Neg); Nitrite, Urine Neg (Neg); Protein, Urine 2+ (Neg); Specific Gravity, Urine 1.015 (1.003-1.022); Urobilinogen, Urine NORM (Normal)
[2020-06-16 02:54] LABS: White Blood Cells, Urine 25-50 /hpf (0-5)
[2020-06-16 02:55] LABS: Amorphous Light (0-Heavy); Bacteria Mod /hpf; Red Blood Cells, Urine 0-2 /hpf (0-2); Renal Epithelial Few /hpf (0-Rare); Squamous Epithelial Cells Not Seen /hpf (Few)
[2020-06-16 06:04] LABS: Anion Gap 10 mmol/L (6-16); Blood Urea Nitrogen 50 mg/dL (8-24); CO2, Blood 12 mmol/L (21-32); Calcium, Blood 9.1 mg/dL (8.5-10.1); Chloride, Blood 114 mmol/L (98-108); Creatinine, Blood 2.38 mg/dL (0.40-1.00); Glomerular Filtration Rate 21 (60-); Glucose, Blood 72 mg/dL (70-99); Potassium, Blood 5.3 mmol/L (3.5-5.5); Sodium, Blood 136 mmol/L (136-145); Vancomycin, Random 28.1 ug/mL
--- NOTE | 2020-06-16 06:55 | NUR ---
SHIFT SUMMARY PATIENT ARRIVED TO ROOM 340 VIA STRETCHER AT 2048. SHE WAS A&OX4 WITH OCCASIONAL CONFUSION. SHE WAS NOTED TO HAVE A STAGE 1 ULCER ON HER R OUTER ANKLE. KHAN PRESENT UPON ADMIT AND COLOSTOMY PRESENT UPON ADMIT. THE SKIN UNDER HER OSTOMY APPLIANCE WAS ULCERATED AND BLEEDING. WHEN ASKED HOW OFTEN SHE CHANGES THE APPLIANCE AT HOME, SHE SAID "TWICE A DAY WHEN THE BAG IS FULL." KHAN CATHETER CHANGED, UA SENT TO LAB. PICTURES TAKEN OF SKIN ISSUES AND PLACED IN CHART. MEPILEX PLACED ON ANKLE. IV PATENT AND INFUSING. PATIENT IS INCREASINGLY CONFUSED THIS MORNING. SHE NO LONGER KNOWS WHERE SHE IS AT, HAVING AUDITORY HALLUCINATIONS, AND TRYING TO BED EXIT. BED IN LOWEST POSITION WITH WHEELS LOCKED AND ALARM ON. CALL LIGHT WITHIN REACH. REPORT GIVEN TO ONCOMING RN.
[2020-06-16 16:26] LABS: Albumin, Blood 2.6 g/dL (3.4-5.0); Anion Gap 9 mmol/L (6-16); Blood Urea Nitrogen 45 mg/dL (8-24); Bun/Creatinine Ratio 23.9 (12.0-20.0); CO2, Blood 14 mmol/L (21-32); Calcium, Blood 8.6 mg/dL (8.5-10.1); Chloride, Blood 116 mmol/L (98-108); Creatinine, Blood 1.88 mg/dL (0.40-1.00); Glomerular Filtration Rate 27 (60-); Glucose, Blood 79 mg/dL (70-99); Phosphorus, Blood 4.6 mg/dL (2.5-4.9); Potassium, Blood 5.2 mmol/L (3.5-5.5); Sodium, Blood 139 mmol/L (136-145)
--- NOTE | 2020-06-16 18:26 | NUR ---
PT RESTING IN BED AFTER DINNER AND PM MEDICATION ADMIN. PT WAS CONFUSED, ALERT AND ORIENTED X1 (SELF, FAMILY) AND PULLED OUT IV, NEW IV PLACED IN LAC BY UNIT SUP, LINE WNL. PT OSTOMY IS RED AND PAINFUL, SITE KEPT CLEEN AND WNL. LIGHT WITHIN REACH, AND BED IN LOW POSITION. STAFF WILL CONT TO MONITOR.
--- NOTE | 2020-06-17 04:24 | NUR ---
SHIFT SUMMARY PATIENT WAS VERY CONFUSED OVERNIGHT. ONLY ALERT AND ORIENTED TO SELF AND FAMILY. VERY FORGETFUL. IV IN LEFT AC INFILTRATED. NEW IV PLACED IN R AC AND IS PATENT AND INFUSING WITH NORMAL SALINE AT 100 ML/HR. BED IN LOWEST POSITION WITH WHEELS LOCKED AND ALARM ON. CALL LIGHT WITHIN REACH. REPORT GIVEN TO ONCOMING RN.
[2020-06-17 06:05] LABS: Albumin, Blood 2.6 g/dL (3.4-5.0); Anion Gap 8 mmol/L (6-16); Blood Urea Nitrogen 36 mg/dL (8-24); Bun/Creatinine Ratio 25.4 (12.0-20.0); CO2, Blood 12 mmol/L (21-32); Calcium, Blood 9.1 mg/dL (8.5-10.1); Chloride, Blood 120 mmol/L (98-108); Creatinine, Blood 1.42 mg/dL (0.40-1.00); Glomerular Filtration Rate 37 (60-); Glucose, Blood 69 mg/dL (70-99); Phosphorus, Blood 3.5 mg/dL (2.5-4.9); Potassium, Blood 4.9 mmol/L (3.5-5.5); Sodium, Blood 140 mmol/L (136-145)
[2020-06-17 08:06] LABS: BASOPHILS ABSOLUTE AUTO 0.06 K/mm3 (0.00-0.23); BASOPHILS PERCENT AUTO 1 % (0-2); EOSINOPHILS ABSOLUTE AUTO 0.28 K/mm3 (0.00-0.68); EOSINOPHILS PERCENT AUTO 3 % (0-6); Hematocrit 31.8 % (33.0-51.0); Hemoglobin 9.6 g/dL (11.5-16.0); IMMATURE GRAN ABSOLUTE AUTO 0.19 K/mm3 (0.00-0.10); IMMATURE GRAN PERCENT AUTO 2 % (0-1); LYMPHOCYTES ABSOLUTE AUTO 1.55 K/mm3 (0.84-5.20); LYMPHOCYTES PERCENT AUTO 17 % (21-46); MONOCYTES ABSOLUTE AUTO 0.88 K/mm3 (0.16-1.47); MONOCYTES PERCENT AUTO 10 % (4-13); Mean Corpuscular HGB 30.5 pg (26.0-34.0); Mean Corpuscular HGB Conc 30.2 g/dL (31.5-36.5); Mean Corpuscular Volume 101 fL (80-100); Mean Platelet Volume 10.2 fL (9.1-12.4); NEUTROPHILS ABSOLUTE AUTO 6.29 K/mm3 (1.96-9.15); NEUTROPHILS PERCENT AUTO 68 % (41-73); Platelet Count 297 K/mm3 (150-400); RDW Coefficient Variation 15.9 % (11.7-14.2); RDW Standard Deviation 59.5 fL (35.1-46.3); Red Blood Cell Count 3.15 M/mm3 (3.80-5.20); White Blood Cell Count 9.25 K/mm3 (4.00-11.30)
--- NOTE | 2020-06-17 18:47 | NUR ---
PT REMAINES CONFUSED AND ORIENTED X1 (SELF). PT MAKES NO COMPLAINTS AT THIS TIME. PT HAS AH/VH, BUT REMAINS COOPERATIVE. PT WORKED WITH PATIENT TODAY AND CONFIRMS THAT SHE WAS SAFE FOR DC WITH FAMILY HELP AT HOME. BED IN LOW POSITION. CALL LIGHT WITHIN REACH. STAFF WILL CONT. TO MONITOR.
--- NOTE | 2020-06-18 05:04 | NUR ---
CONSTRUCTION SERVICES TECHNICIAN SUMMARY NO ACUTE CHANGES THIS SHIFT. PT AAOX2-3 WITH SOME INTERMITTENT CONFUSION/FORGETFULNESS NOTED. VERY PLEASANT. DENIES PAIN, SOB, N/V. PER DAY SHIFT RN REPORT PT'S OSTOMY BAG WAS TO BE CHANGED PER MD REQUEST. OSTOMY SITE CLEANED AND NEW APPLIANCE AND BAG PLACED, SOME RAW SKIN STILL NOTED UNDER ADHESIVE AREA OF APPLIANCE HOWEVER PER DAY SHIFT RN IT WAS IMPROVED ENOUGH TO REPLACE. PT HAS SLEPT MOST OF THE NIGHT WITH NO COMPLAINTS. PT POSSIBLE DC HOME WITH FAMILY LATER TODAY. VSS, WILL CONTINUE TO MONITOR.
[2020-06-18 08:24] LABS: Bun/Creatinine Ratio 22.4 (12.0-20.0); Calcium, Blood 8.8 mg/dL (8.5-10.1); Creatinine, Blood 1.07 mg/dL (0.40-1.00); Potassium, Blood 4.7 mmol/L (3.5-5.5)
[2020-06-18] MEDS ORDERED: CEFP200 PO (11:55)
[2020-06-18] MEDS ORDERED: DOCU100 PO (11:55)
--- NOTE | 2020-06-18 13:25 | NUR ---
PT DISCHARGED THE PTS DAUGHTER VERBALIZED UNDERSTANDING OF THE PTS DC INSTRUCTIONS, THE PTS PRESCRIPTIONS WERE FAXED TO [facility], THE PT APPEARED TO BE BREATHING EASILY AT THE TIME OF DC, PT WAS TRANSFERED VIA WHEELCHAIR ACCOMPANIED BY THE MANUFACTURING WEAVER AND HER FAMILY
== END 2020-06-18 13:18 | disposition home or self-care (01) | DRG 683 ==
LOC: ER 15:40 → MEDS 19:00 → ENPENDDIS 06-18 11:06 → MEDS 06-18 13:18
PROVIDERS: Family Medicine; Internal Medicine; Physician Assistant; ADMIT Hospitalist
DX: N17.9 Acute kidney failure, unspecified (principal); N39.0 Urinary tract infection, site not specified; E87.2 Acidosis; E87.1 Hypo-osmolality and hyponatremia; E78.5 Hyperlipidemia, unspecified; E78.1 Pure hyperglyceridemia; I95.9 Hypotension, unspecified; Z93.3 Colostomy status; E86.0 Dehydration; Z79.899 Other long term (current) drug therapy; I12.9 Hypertensive chronic kidney disease with stage 1 through stage 4 chronic kidney disease, or unspecified chronic kidney disease; F32.9 Major depressive disorder, single episode, unspecified; G47.33 Obstructive sleep apnea (adult) (pediatric); M19.90 Unspecified osteoarthritis, unspecified site; K21.9 Gastro-esophageal reflux disease without esophagitis; I48.91 Unspecified atrial fibrillation; E03.9 Hypothyroidism, unspecified; Z96.643 Presence of artificial hip joint, bilateral; Z90.49 Acquired absence of other specified parts of digestive tract; Z98.890 Other specified postprocedural states; Z87.891 Personal history of nicotine dependence; D64.9 Anemia, unspecified; J44.9 Chronic obstructive pulmonary disease, unspecified; F41.1 Generalized anxiety disorder; L89.511 Pressure ulcer of right ankle, stage 1; N18.31 Chronic kidney disease, stage 3a
CPT/HCPCS: 36415; 51702; 80048; 80053; 80069; 80202; 81001; 85025; 87077; 87086; 87186; 93005; 93010; 94640; 94664; 94760; 96365; 97116; 97161; 97165; 97530; 97535; 99285-25; A9270; J0696; J3370; J7030; J7040

== ENCOUNTER 2020-08-17 16:46 | Inpatient (IN) | payer OTHER, MEDICARE ==
[~2020-08-17] VITALS: Ht 167.6 cm; Wt 83.1 kg
[~2020-08-17 16:46] MED LIST changes: +CEFP200 PO; +DOCU100 PO
[2020-08-17 17:16] LABS: BASOPHILS ABSOLUTE AUTO 0.04 K/mm3 (0.00-0.23); BASOPHILS PERCENT AUTO 0 % (0-2); EOSINOPHILS PERCENT AUTO 0 % (0-6); Hematocrit 42.6 % (33.0-51.0); Hemoglobin 12.9 g/dL (11.5-16.0); IMMATURE GRAN ABSOLUTE AUTO 0.09 K/mm3 (0.00-0.10); IMMATURE GRAN PERCENT AUTO 1 % (0-1); LYMPHOCYTES ABSOLUTE AUTO 0.94 K/mm3 (0.84-5.20); LYMPHOCYTES PERCENT AUTO 6 % (21-46); MONOCYTES ABSOLUTE AUTO 0.19 K/mm3 (0.16-1.47); MONOCYTES PERCENT AUTO 1 % (4-13); Mean Corpuscular HGB 26.8 pg (26.0-34.0); Mean Corpuscular HGB Conc 30.3 g/dL (31.5-36.5); Mean Corpuscular Volume 88 fL (80-100); Mean Platelet Volume 11.8 fL (9.1-12.4); NEUTROPHILS ABSOLUTE AUTO 14.66 K/mm3 (1.96-9.15); NEUTROPHILS PERCENT AUTO 92 % (41-73); Platelet Count 309 K/mm3 (150-400); RDW Standard Deviation 55.7 fL (35.1-46.3); Red Blood Cell Count 4.82 M/mm3 (3.80-5.20); White Blood Cell Count 15.92 K/mm3 (4.00-11.30)
[2020-08-17 17:30] LABS: International Normalized Ratio 0.97; Prothrombin Time Results 10.5 Sec (9.7-11.5)
[2020-08-17 18:42] LABS: Ethanol (Alcohol), Blood, Med <3 mg/dL; Troponin I 0.266 ng/mL (0.000-0.040)
[2020-08-17 19:03] LABS: Alanine Aminotransfer (ALT/SGP 35 U/L (12-78); Albumin, Blood 3.7 g/dL (3.4-5.0); Albumin/Globulin Ratio 0.9 (0.8-1.8); Alk Phos 247 U/L (50-136); Anion Gap 10 mmol/L (6-16); Aspartate Aminotrans (AST/SGOT 48 U/L (12-37); CO2, Blood 12 mmol/L (21-32); Calcium, Blood 10.8 mg/dL (8.5-10.1); Chloride, Blood 107 mmol/L (98-108); Globulin, Blood 4.2 g/dL (2.2-4.0); Glomerular Filtration Rate 10 (60-); Glucose, Blood 119 mg/dL (70-99); Sodium, Blood 129 mmol/L (136-145); Total Protein, Blood 7.9 g/dL (6.4-8.2)
[2020-08-17 19:16] LABS: Bilirubin, Total 0.5 mg/dL (0.1-1.0); Blood Urea Nitrogen 69 mg/dL (8-24); Bun/Creatinine Ratio 15.3 (12.0-20.0)
[2020-08-17 19:17] LABS: Potassium, Blood 7.3 mmol/L (3.5-5.5)
[2020-08-17 20:15] LABS: Calcium, Ionized (POC) 1.46 mmol/L (1.10-1.46); Chloride (POC) 113 mmol/L (98-108); Creatinine (POC) 4.9 mg/dL (0.6-1.0); Glucose (ISTAT POC) 110 mg/dL (70-99); Hemoglobin (POC) 15.3 g/dL (12.0-16.0); Potassium (POC) 7.7 mmol/L (3.5-5.5); Sodium (POC) 131 mmol/L (135-148); Total CO2 (POC) 14 mmol/L (21-32)
[2020-08-17] MEDS ORDERED: ZESTRIL40 M1 PO (20:24)
[2020-08-17] MEDS ORDERED: POTA20LUD PO (20:31)
[2020-08-17 23:11] LABS: Source, Urine Catheter
[2020-08-17 23:13] LABS: Bilirubin, Urine Neg (Neg); Blood, Urine 1+ (Neg); Glucose Qualitative, Urine Neg (Neg); Ketones, Urine Neg (Neg); Leukocyte Esterase, Urine 3+ (Neg); Nitrite, Urine Neg (Neg); Protein, Urine 3+ (Neg); Specific Gravity, Urine 1.015 (1.003-1.022); Urobilinogen, Urine NORM (Normal)
[2020-08-17 23:20] LABS: Appearance, Urine Cloudy (Clear); Color, Urine Yellow (P-Yellow)
[2020-08-17 23:21] LABS: Bacteria Many /hpf; Hyaline Casts 0-2 /lpf (0-2); Red Blood Cells, Urine 0-2 /hpf (0-2); Squamous Epithelial Cells Not Seen /hpf (Few); White Blood Cells, Urine TNTC /hpf (0-5)
--- NOTE | 2020-08-17 23:55 | NUR ---
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
[2020-08-18 00:08] LABS: Potassium, Blood 6.9 mmol/L (3.5-5.5)
[2020-08-18 04:30] LABS: BASOPHILS ABSOLUTE AUTO 0.02 K/mm3 (0.00-0.23); BASOPHILS PERCENT AUTO 0 % (0-2); EOSINOPHILS PERCENT AUTO 0 % (0-6); Hematocrit 33.6 % (33.0-51.0); Hemoglobin 10.4 g/dL (11.5-16.0); IMMATURE GRAN ABSOLUTE AUTO 0.08 K/mm3 (0.00-0.10); IMMATURE GRAN PERCENT AUTO 1 % (0-1); LYMPHOCYTES ABSOLUTE AUTO 1.23 K/mm3 (0.84-5.20); LYMPHOCYTES PERCENT AUTO 11 % (21-46); MONOCYTES ABSOLUTE AUTO 0.65 K/mm3 (0.16-1.47); MONOCYTES PERCENT AUTO 6 % (4-13); Mean Corpuscular HGB 26.7 pg (26.0-34.0); Mean Corpuscular Volume 86 fL (80-100); Mean Platelet Volume 11.3 fL (9.1-12.4); NEUTROPHILS ABSOLUTE AUTO 9.71 K/mm3 (1.96-9.15); NEUTROPHILS PERCENT AUTO 83 % (41-73); Platelet Count 240 K/mm3 (150-400); RDW Coefficient Variation 17.1 % (11.7-14.2); RDW Standard Deviation 53.6 fL (35.1-46.3); Red Blood Cell Count 3.89 M/mm3 (3.80-5.20); White Blood Cell Count 11.69 K/mm3 (4.00-11.30)
[2020-08-18 04:47] LABS: Magnesium, Blood 1.6 mg/dL (1.6-2.4)
[2020-08-18 04:50] LABS: Albumin, Blood 2.9 g/dL (3.4-5.0); Anion Gap 6 mmol/L (6-16); Blood Urea Nitrogen 71 mg/dL (8-24); CO2, Blood 19 mmol/L (21-32); Calcium, Blood 9.9 mg/dL (8.5-10.1); Chloride, Blood 109 mmol/L (98-108); Creatinine, Blood 4.17 mg/dL (0.40-1.00); Glomerular Filtration Rate 11 (60-); Glucose, Blood 114 mg/dL (70-99); Phosphorus, Blood 4.2 mg/dL (2.5-4.9); Potassium, Blood 6.1 mmol/L (3.5-5.5); Sodium, Blood 134 mmol/L (136-145)
--- NOTE | 2020-08-18 06:15 | NUR ---
SHIFT SUMMARY PT A&O X 3; PLEASANT & COMPLIANT W/ CARE; DENIES CHEST PAIN; VSS; SR- ST ON TELE; O2 SATS > 93 ON 2L NC; SODIUM BICARB GTT INFUSING @ 100 ML/HR; SODIUM BICARB PUSH X 2 THIS SHIFT IN ADDITION; COLOSTOMY RMQ DRAINING LIQUID BROWN STOOL; KHAN PATENT & DRAINING CLOUDY URINE; REPOSITIONED TOLERATED; PERSONAL ROBE DRAPED OVER PT FOR COMFORT; CALL LIGHT IN REACH; BED IN LOWEST POSITION W/ BED ALARM ON; WILL CONTINUE TO MONITOR CLOSELY UNTIL HAND OFF TO DAY SHIFT RN.
[2020-08-18 11:42] LABS: Adenovirus F 40/41 Not Detected (NOT DETECT); Astrovirus Not Detected (NOT DETECT); Campylobacter Sp Not Detected (NOT DETECT); Cryptosporidium Not Detected (NOT DETECT); Cyclospora Cayetanensis Not Detected (NOT DETECT); E. Coli O157 Not Detected (NOT DETECT); Entamoeba Histolytica Not Detected (NOT DETECT); Enteroaggregative E. coli-EAEC Not Detected (NOT DETECT); Enteropathogenic E. coli-EPEC Not Detected (NOT DETECT); Enterotoxigenic E. coli-ETEC Not Detected (NOT DETECT); Giardia Lamblia Not Detected (NOT DETECT); Norovirus GI/GII Not Detected (NOT DETECT); Plesiomonas Shigelloides Not Detected (NOT DETECT); Rotavirus A Not Detected (NOT DETECT); Salmonella Sp Not Detected (NOT DETECT); Sapovirus Not Detected (NOT DETECT); Shiga Toxin-prod E. coli-STEC Not Detected (NOT DETECT); Shigella/Enteroin E. coli-EIEC Not Detected (NOT DETECT); Vibrio Cholerae Not Detected (NOT DETECT); Vibrio Sp Not Detected (NOT DETECT); Yersinia Enterocolitica Not Detected (NOT DETECT)
--- NOTE | 2020-08-18 17:04 | NUR ---
SHIFT SUMMARY PT IS A/O X3. PT IS COOPERATIVE OF CARE. VSS THROUGHOUT SHIFT. O2 SATS >94% ON 1L NC. COLOSTOMY DRAINING BROWN LIQUID STOOL, WOUND NEXT TO COLOSTOMY BAG C/D/I. KHAN IN PLACE AND PATENT DRAINING CLOUDY YELLOW URINE. PT DENIES CHEST PAIN/PRESSURE THROUGHOUT SHIFT. PT WAS UP TO CHAIR, TOLERATED WELL. BED ALARM IN PLACE. CALL LIGHT IN REACH.
[2020-08-18 18:07] LABS: Albumin, Blood 2.6 g/dL (3.4-5.0); Anion Gap 8 mmol/L (6-16); Blood Urea Nitrogen 68 mg/dL (8-24); Bun/Creatinine Ratio 17.2 (12.0-20.0); CO2, Blood 21 mmol/L (21-32); Chloride, Blood 108 mmol/L (98-108); Creatinine, Blood 3.95 mg/dL (0.40-1.00); Glomerular Filtration Rate 11 (60-); Glucose, Blood 91 mg/dL (70-99); Phosphorus, Blood 3.3 mg/dL (2.5-4.9); Potassium, Blood 5.3 mmol/L (3.5-5.5); Sodium, Blood 137 mmol/L (136-145)
[2020-08-19 04:06] LABS: BASOPHILS ABSOLUTE AUTO 0.01 K/mm3 (0.00-0.23); BASOPHILS PERCENT AUTO 0 % (0-2); EOSINOPHILS ABSOLUTE AUTO 0.11 K/mm3 (0.00-0.68); EOSINOPHILS PERCENT AUTO 1 % (0-6); Hematocrit 29.3 % (33.0-51.0); Hemoglobin 9.4 g/dL (11.5-16.0); IMMATURE GRAN ABSOLUTE AUTO 0.06 K/mm3 (0.00-0.10); IMMATURE GRAN PERCENT AUTO 1 % (0-1); LYMPHOCYTES ABSOLUTE AUTO 2.22 K/mm3 (0.84-5.20); LYMPHOCYTES PERCENT AUTO 25 % (21-46); MONOCYTES ABSOLUTE AUTO 0.79 K/mm3 (0.16-1.47); MONOCYTES PERCENT AUTO 9 % (4-13); Mean Corpuscular HGB 26.6 pg (26.0-34.0); Mean Corpuscular HGB Conc 32.1 g/dL (31.5-36.5); Mean Corpuscular Volume 83 fL (80-100); Mean Platelet Volume 12.2 fL (9.1-12.4); NEUTROPHILS ABSOLUTE AUTO 5.62 K/mm3 (1.96-9.15); NEUTROPHILS PERCENT AUTO 64 % (41-73); Platelet Count 231 K/mm3 (150-400); RDW Coefficient Variation 16.9 % (11.7-14.2); RDW Standard Deviation 51.3 fL (35.1-46.3); Red Blood Cell Count 3.54 M/mm3 (3.80-5.20); White Blood Cell Count 8.81 K/mm3 (4.00-11.30)
[2020-08-19 04:42] LABS: Albumin, Blood 2.4 g/dL (3.4-5.0); Anion Gap 6 mmol/L (6-16); Blood Urea Nitrogen 67 mg/dL (8-24); Bun/Creatinine Ratio 19.5 (12.0-20.0); CO2, Blood 29 mmol/L (21-32); Calcium, Blood 8.5 mg/dL (8.5-10.1); Chloride, Blood 100 mmol/L (98-108); Creatinine, Blood 3.44 mg/dL (0.40-1.00); Glomerular Filtration Rate 13 (60-); Glucose, Blood 89 mg/dL (70-99); Phosphorus, Blood 2.8 mg/dL (2.5-4.9); Potassium, Blood 4.4 mmol/L (3.5-5.5); Sodium, Blood 135 mmol/L (136-145)
[2020-08-19 05:01] LABS: Magnesium, Blood 1.1 mg/dL (1.6-2.4)
--- NOTE | 2020-08-19 05:13 | NUR ---
CRITICAL LAB LAB [facility] W/ CRITICAL LAB VALUE: MAGNESIUM 1.1. CALL PLACED TO MD WILKERSON. MD WILKERSON W/ ORDERS FOR 1GM MAGNESIUM IV.
--- NOTE | 2020-08-19 06:20 | NUR ---
SHIFT SUMMARY PT A&OX3, OCCASIONALLY CONFUSED, PLEASANT. SP02>92% ON 2L NC. TELEMETRY READS AFIB, HR 80'S. PT DENIES PAIN. PT HAS COLOSTOMY, EMPTIED X2 THIS SHIFT. PT HAS KHAN CATHETER DRAINING CLOUDY, YELLOW URINE TO GRAVITY. BICARB INFUSING PER EMAR. PT HAD CRITICAL LAB THIS MORNING, SEE PREVIOUS NOTE. MAGNESIUM INFUSING PER EMAR. PT DID NOT SLEEP MUCH DURING NIGHT. PT REPOSIITONED Q2H. CALL LIGHT IN REACH. WILL GIVE REPORT TO ONCOMING NURSE.
--- NOTE | 2020-08-19 17:00 | NUR ---
REPORT TO ADRIANA ADLER TO ASSUME CARE ON MEDICAL FLOOR. INTERMITANTLY CONFUSED DURING SHIFT. ABX STARTED TODAY FOR UTI, NS INFUSING AT 75ML/HR. COLOSTOMY EMPTIED NEEDED, KHAN IN PLACE DRAINING TO GRAVITY. BEDREST WITH REPOSITIONING Q2. NO ACUTE MEDICAL CHANGES DURING SHIFT.
--- NOTE | 2020-08-19 17:35 | NUR ---
PCU TRANSFER- PT ARRIVED TO ROOM 355 FROM PCU 3 AT 1730. PT AWAKE AND CONVERSATING. DAUGHTER AND SPOUSE AT BEDSIDE. PT DENIES ANY COMPLAINTS AT THIS TIME. COLOSTOMY PRESENT AND KHAN CATHETER. PT ON 2L N/C, PT REPORTS CHRONICALLY WEARS OXYGEN AT HOME. PT ORIENTED TO ROOM AND CALL SYSTEM, CALL LIGHT IN REACH.
[2020-08-20 04:51] LABS: Hematocrit 30.8 % (33.0-51.0); Hemoglobin 9.6 g/dL (11.5-16.0)
[2020-08-20 05:18] LABS: Albumin, Blood 2.2 g/dL (3.4-5.0); Anion Gap 6 mmol/L (6-16); Blood Urea Nitrogen 55 mg/dL (8-24); Bun/Creatinine Ratio 24.4 (12.0-20.0); CO2, Blood 26 mmol/L (21-32); Calcium, Blood 8.7 mg/dL (8.5-10.1); Chloride, Blood 106 mmol/L (98-108); Creatinine, Blood 2.25 mg/dL (0.40-1.00); Glomerular Filtration Rate 22 (60-); Glucose, Blood 80 mg/dL (70-99); Magnesium, Blood 1.7 mg/dL (1.6-2.4); Phosphorus, Blood 2.9 mg/dL (2.5-4.9); Potassium, Blood 4.1 mmol/L (3.5-5.5); Sodium, Blood 138 mmol/L (136-145)
--- NOTE | 2020-08-20 05:45 | NUR ---
SHIFT SUMMARY PT IS AN 84 Y/O FEMALE, ADMITTED FOR HYPERKALEMIA. SHE IS A&O X 2-3, FORGETFUL AT TIMES. 2PA IF OUT OF BED. KHAN IN PLACE, PATENT AND DRAINING. COLOSTOMY IN PLACE IN L ABD. NO C/O ACUTE PAIN, NAUSEA OR SOB. VITAL SIGNS STABLE. RECEIVING NS @ 75 ML/HR. NO ACUTE CHANGES IN PT CONDITION NOTED DURING THE NIGHT. WILL CONTINUE TO MONITOR AND TREAT PER EMAR UNTIL HAND OFF TO DAY SHIFT RN.
--- NOTE | 2020-08-20 18:06 | NUR ---
PT AOX3 WITH SOME MILD CONFUSION. MOST OF THE TIME PT WOULD ANSWER QUESTION APPROPRIATELY, YET EVEN THOUGH SHE WAS DRY AND HAD A GOOD IV THOUGHT IT WAS SOAKING HER BED. EVEN CHANGED ALL HER SHEETS AND SHE STILL THOUGHT SHE WAS WET. SHE ALSO ASKED WHAT THE NAME OF THE SHIP WAS SHE WAS RIDDING IN. PT COOPERATIVE OF CARE AND DENIES ANY PAIN AT THIS TIME. PT HAD KHAN REMOVED AND WILL BE MONITORED FOR VOIDING. NO DISTRESS NOTED AT THIS TIME WILL CONTINUE TO MONITOR.
--- NOTE | 2020-08-21 04:26 | NUR ---
SHIFT SUMMARY ADMITTED FOR AMS/GEMA/HYPOKALEMIA. DNR CODE. RENAL CONSULT IS DR. PÉREZ. NS INFUSING @ 50 ML/HR. WE DID BLADDER SCAN 1X THIS SHIFT, PT WAS ABLE TO VOID 400 ML'S. SHE IS CONFUSED AT TIMES. PLAN IS TO DC HOME WITH DAUGHTER WHEN STABLE. SHE HAS A RENAL DIET. THIS SHIFT I WAS ABLE TO GET HER UP TO THE BSC TO VOID. SHE IS ON 2 LPM O2 VIA NC, WHICH IS HER BASELINE. A COLOSTOMY IS IN PLACE. CONTACT PRECAUTIONS FOR VRE IN URINE.
[2020-08-21 06:47] LABS: Albumin, Blood 2.4 g/dL (3.4-5.0); Anion Gap 6 mmol/L (6-16); Blood Urea Nitrogen 38 mg/dL (8-24); Bun/Creatinine Ratio 24.1 (12.0-20.0); CO2, Blood 25 mmol/L (21-32); Chloride, Blood 107 mmol/L (98-108); Creatinine, Blood 1.58 mg/dL (0.40-1.00); Glomerular Filtration Rate 33 (60-); Glucose, Blood 85 mg/dL (70-99); Magnesium, Blood 1.5 mg/dL (1.6-2.4); Phosphorus, Blood 2.6 mg/dL (2.5-4.9); Potassium, Blood 4.5 mmol/L (3.5-5.5); Sodium, Blood 138 mmol/L (136-145)
[2020-08-21] MEDS ORDERED: CEPH500 PO (12:31)
--- NOTE | 2020-08-21 15:44 | NUR ---
PT AOX3 WITH CONFUSION. PT HAS BEEN DOING WELL WORKING WITH PHYSICAL THERAPY AND WAS A STANDBY WITH GAITBELT PER THERAPIST. PT WAS USING CALL LIGHT WELL FOR MOST OF THE DAY. PT DENIED ANY PAIN. PT THEN HAD A WITNESSED FALL PLEASE REFER TO POST FALL ASSESSMENT. NO INJURIES OCCURED LE RN WAS PASSING AND STATED SHE STUMBLED AND SAT DOWN. LE WAS ABLE TO SOFTEN LANDING. NO DISTRESS NOTED DAUGHTER ARRIVED JUST PT WAS HELPED UP. DRESSED AND IVs REMOVED. ALL PERSONAL BELONINGS COLLECTED AND VOLUNTEER TOOK PT OUT TO ENTRANCE VIA WHEELCHAIR. PT DISCHARGED AT 1440.
== END 2020-08-21 15:09 | disposition home health service (06) | DRG 682 ==
LOC: ER 16:46 → MEDS 21:38 → PCU 21:38 → MEDS 08-19 17:20 → EDPENDDISDT 08-21 11:15 → EDPENDDISTM 08-21 11:15 → ENPENDDIS 08-21 11:15 → MEDS 08-21 15:09
PROVIDERS: Emergency Medicine; Internal Medicine; Internal Medicine Nephrology; Physician Assistant; ADMIT Family Medicine
DX: N17.9 Acute kidney failure, unspecified (principal); G93.41 Metabolic encephalopathy; N39.0 Urinary tract infection, site not specified; K51.90 Ulcerative colitis, unspecified, without complications; E87.1 Hypo-osmolality and hyponatremia; E87.2 Acidosis; E87.5 Hyperkalemia; Z66 Do not resuscitate; N25.81 Secondary hyperparathyroidism of renal origin; E86.0 Dehydration; R79.89 Other specified abnormal findings of blood chemistry; I12.9 Hypertensive chronic kidney disease with stage 1 through stage 4 chronic kidney disease, or unspecified chronic kidney disease; N18.30 Chronic kidney disease, stage 3 unspecified; J44.9 Chronic obstructive pulmonary disease, unspecified; E78.5 Hyperlipidemia, unspecified; G47.33 Obstructive sleep apnea (adult) (pediatric); F32.9 Major depressive disorder, single episode, unspecified; M19.90 Unspecified osteoarthritis, unspecified site; K21.9 Gastro-esophageal reflux disease without esophagitis; I48.0 Paroxysmal atrial fibrillation; E03.9 Hypothyroidism, unspecified; E83.52 Hypercalcemia; D64.9 Anemia, unspecified; D72.829 Elevated white blood cell count, unspecified; R19.7 Diarrhea, unspecified; E83.42 Hypomagnesemia; Z74.09 Other reduced mobility; Z93.3 Colostomy status; Z99.81 Dependence on supplemental oxygen; Z87.891 Personal history of nicotine dependence; Z79.899 Other long term (current) drug therapy; Z79.01 Long term (current) use of anticoagulants; Z79.51 Long term (current) use of inhaled steroids
CPT/HCPCS: 0097U; 36415; 51702; 51798; 74176; 80047; 80053; 80069; 81001; 82374; 82947; 83735; 84132; 84484; 85014; 85018; 85025; 85610; 87077; 87086; 87186; 93005; 93010; 94640; 94760; 96361-59; 96365-59; 96375-59; 97110; 97162; 97530; 99285-25; A9270; G0480; J0610; J0696; J0881; J1644; J1815; J2405; J3475; J7030; J7050; J7070

== ENCOUNTER 2020-09-26 12:07 | Inpatient (IN) | payer MEDICARE, OTHER ==
[~2020-09-26] VITALS: Ht 167.6 cm; Wt 82.2 kg
[~2020-09-26 12:07] MED LIST changes: +CEPH500 PO; +POTA20LUD PO
[2020-09-26 14:17] LABS: BASOPHILS ABSOLUTE AUTO 0.08 K/mm3 (0.00-0.23); BASOPHILS PERCENT AUTO 0 % (0-2); EOSINOPHILS PERCENT AUTO 0 % (0-6); Hematocrit 46.6 % (33.0-51.0); Hemoglobin 14.2 g/dL (11.5-16.0); IMMATURE GRAN ABSOLUTE AUTO 0.39 K/mm3 (0.00-0.10); IMMATURE GRAN PERCENT AUTO 1 % (0-1); LYMPHOCYTES ABSOLUTE AUTO 1.15 K/mm3 (0.84-5.20); LYMPHOCYTES PERCENT AUTO 4 % (21-46); MONOCYTES ABSOLUTE AUTO 1.01 K/mm3 (0.16-1.47); MONOCYTES PERCENT AUTO 4 % (4-13); Mean Corpuscular HGB 27.9 pg (26.0-34.0); Mean Corpuscular HGB Conc 30.5 g/dL (31.5-36.5); Mean Corpuscular Volume 92 fL (80-100); Mean Platelet Volume 11.4 fL (9.1-12.4); NEUTROPHILS ABSOLUTE AUTO 24.31 K/mm3 (1.96-9.15); NEUTROPHILS PERCENT AUTO 90 % (41-73); NRBC ABSOLUTE 0.57 K/mm3 (0.00-0.02); NRBC Auto 2.1 /100 WBC (0.0-0.2); Platelet Count 308 K/mm3 (150-400); RDW Coefficient Variation 19.9 % (11.7-14.2); RDW Standard Deviation 63.8 fL (35.1-46.3); Red Blood Cell Count 5.09 M/mm3 (3.80-5.20); White Blood Cell Count 26.94 K/mm3 (4.00-11.30)
[2020-09-26 14:35] LABS: Albumin, Blood 3.3 g/dL (3.4-5.0); Albumin/Globulin Ratio 0.7 (0.8-1.8); Calcium, Blood 11.4 mg/dL (8.5-10.1); Creatinine, Blood 3.32 mg/dL (0.40-1.00); Globulin, Blood 4.5 g/dL (2.2-4.0); Potassium, Blood 7.5 mmol/L (3.5-5.5); Total Protein, Blood 7.8 g/dL (6.4-8.2)
[2020-09-26] MEDS ORDERED: ZESTRIL40 M1 PO (14:59)
[2020-09-26] MEDS ORDERED: NYSTATIN15 GM TOP (14:59)
[2020-09-26] MEDS ORDERED: ALLOPURINOL100 M1 PO (15:00)
[2020-09-26 16:48] LABS: Source, Urine Clean Catch
[2020-09-26 16:52] LABS: Appearance, Urine Cloudy (Clear); Bilirubin, Urine Neg (Neg); Blood, Urine 2+ (Neg); Color, Urine Yellow (P-Yellow); Glucose Qualitative, Urine Neg (Neg); Ketones, Urine Neg (Neg); Leukocyte Esterase, Urine 3+ (Neg); Nitrite, Urine Neg (Neg); Protein, Urine 3+ (Neg); Specific Gravity, Urine 1.015 (1.003-1.022); Urobilinogen, Urine NORM (Normal)
[2020-09-26 16:57] LABS: White Blood Cells, Urine TNTC /hpf (0-5)
[2020-09-26 16:58] LABS: Bacteria Many /hpf; Squamous Epithelial Cells Few /hpf (Few); Transitional Epithelial Cells Few /hpf (0-Rare)
[2020-09-26 19:16] LABS: Bun/Creatinine Ratio 15.3 (12.0-20.0); Calcium, Blood 11.8 mg/dL (8.5-10.1); Creatinine, Blood 3.14 mg/dL (0.40-1.00)
[2020-09-26 19:17] LABS: Potassium, Blood 6.2 mmol/L (3.5-5.5)
[2020-09-26 21:02] LABS: Adenovirus F 40/41 Not Detected (NOT DETECT); Astrovirus Not Detected (NOT DETECT); Campylobacter Sp Not Detected (NOT DETECT); Cryptosporidium Not Detected (NOT DETECT); Cyclospora Cayetanensis Not Detected (NOT DETECT); E. Coli O157 Not Detected (NOT DETECT); Entamoeba Histolytica Not Detected (NOT DETECT); Enteroaggregative E. coli-EAEC Not Detected (NOT DETECT); Enteropathogenic E. coli-EPEC Not Detected (NOT DETECT); Enterotoxigenic E. coli-ETEC Not Detected (NOT DETECT); Giardia Lamblia Not Detected (NOT DETECT); Norovirus GI/GII Not Detected (NOT DETECT); Plesiomonas Shigelloides Not Detected (NOT DETECT); Rotavirus A Not Detected (NOT DETECT); Salmonella Sp Not Detected (NOT DETECT); Sapovirus Not Detected (NOT DETECT); Shiga Toxin-prod E. coli-STEC Not Detected (NOT DETECT); Shigella/Enteroin E. coli-EIEC Not Detected (NOT DETECT); Vibrio Cholerae Not Detected (NOT DETECT); Vibrio Sp Not Detected (NOT DETECT); Yersinia Enterocolitica Not Detected (NOT DETECT)
--- NOTE | 2020-09-27 02:40 | NUR ---
THIS LN TOOK OVER CARE AT 1900, PATIENT ARRIVED FROM ED, DAUGHTER AT BEDSIDE POP RN AND DESTINEY RN STARTING THE ADMISSION PROCESS, PATIENT IS ALERT TO SELF ONLY, USES 2LNC AT HOME AT BASELINE, O2 APPLIED AND ORDER FOR CONTINOUS MONITOR OBTAINED AND IMPLIMENTED, ACCORDING TO DAUGHTER MOM IS TO WHERE A CPAP AT NIGHT BUT IS UNABLE TO TOLERATE THE MASK. PATIENT HAD A POWERGLIDE PUT IN THE ATIF AROUND 2100 BICARB IV WAS CHANGED FOR R HAND TO SHEKHAR POWERGLIDE, AT 0000 DOING ROUNDS CHECKED THE IV AND NOTED SHEKHAR WAS ENLARGED, STOPPED THE GTT, CALLED CALVIN KABA, RECEIVED NEW ORDERS TO APPLY ICE AND GIVE HYDROCORTISONE 100MG/2ML SPILT INTO 6 INJECTIONS AROUND THE SITE, GLEN REDNESS AND SWELLING WITH A BLACK MARKER, PURCHASING MANAGER REMOVED THE POWERGLIDE, AN ATTEMPT TO SEE IF ANOTHER LINE COULD BE PUT IN AND WAS UNABLE TO SEE A VIABLE VEIN. WILL CONITNUE TO MONITOR THE CURRENT IV SITE, BICARB IS RUNNING AT 50ML/HR AND WILL NEED TO START PREVIOUS ORDER OF NS 125ML/HR ONCE THE BICARB BAG IS COMPLETED, PATIENT WAS ABLE TO DRINK THE LOKALEMA BUT NOTED A SLIGHT DELAYED COUGH WITH USING A STRAW, REMOVED STRAW AND THROUGH SMALL SIPS PATIENT WAS ABLE TO TOLERATE THE LOKALEMIA, AWAITING FOR MORNING LABS AND FURTHER MANAGMENT OF THE HYPERKALEMIA. PATIENT HAS BEEN FOLLOWING DIRECTIONS AND MAKING NEEDS KNOWN, NOT USING THE CALL LIGHT CONTINUE EDUCATION ON HOW TO CALL RN IF NEEDED GIVEN THROUGHOUT THE NIGHT.
[2020-09-27 03:36] LABS: Hematocrit 37.5 % (33.0-51.0); Hemoglobin 12.1 g/dL (11.5-16.0); Mean Corpuscular HGB 27.9 pg (26.0-34.0); Mean Corpuscular HGB Conc 32.3 g/dL (31.5-36.5); Mean Platelet Volume 10.2 fL (9.1-12.4); NRBC ABSOLUTE 0.36 K/mm3 (0.00-0.02); NRBC Auto 1.3 /100 WBC (0.0-0.2); Platelet Count 235 K/mm3 (150-400); RDW Coefficient Variation 19.7 % (11.7-14.2); RDW Standard Deviation 59.7 fL (35.1-46.3); Red Blood Cell Count 4.34 M/mm3 (3.80-5.20); White Blood Cell Count 27.38 K/mm3 (4.00-11.30)
[2020-09-27 03:38] LABS: Mean Corpuscular Volume 86 fL (80-100)
[2020-09-27 03:50] LABS: Calcium, Blood 10.4 mg/dL (8.5-10.1); Creatinine, Blood 2.83 mg/dL (0.40-1.00); Magnesium, Blood 1.3 mg/dL (1.6-2.4); Potassium, Blood 5.8 mmol/L (3.5-5.5)
[2020-09-27 04:00] LABS: BAND PERCENT MAN 11 % (0-8); BASOPHILS PERCENT MAN 0 % (0-2); EOSINOPHILS PERCENT MAN 0 % (0-6); LYMPHOCYTES ABSOLUTE MAN 0.54 K/mm3 (0.84-5.20); LYMPHOCYTES PERCENT MAN 2 % (21-46); MONOCYTES ABSOLUTE MAN 1.36 K/mm3 (0.16-1.47); MONOCYTES PERCENT MAN 5 % (4-13); MYELOCYTE ABSOLUTE MAN 0.27 K/mm3 (0.00-0.00); MYELOCYTE PERCENT MAN 1 % (0-0); NEUTROPHILS ABSOLUTE MAN 25.18 K/mm3 (1.96-9.15); SEG NEUTROPHILS PERCENT MAN 81 % (41-73); TOTAL CELLS COUNTED 100
--- NOTE | 2020-09-27 04:30 | NUR ---
PATIENT SHEKHAR SWELLING RESOLVED, REDNESS SUBSIDED, NO PAIN NOTED.
[2020-09-27 16:14] LABS: Albumin, Blood 2.6 g/dL (3.4-5.0); Anion Gap 10 mmol/L (6-16); Blood Urea Nitrogen 50 mg/dL (8-24); Bun/Creatinine Ratio 18.5 (12.0-20.0); CO2, Blood 17 mmol/L (21-32); Calcium, Blood 10.1 mg/dL (8.5-10.1); Chloride, Blood 107 mmol/L (98-108); Glomerular Filtration Rate 18 (60-); Glucose, Blood 80 mg/dL (70-99); Phosphorus, Blood 3.5 mg/dL (2.5-4.9); Potassium, Blood 5.5 mmol/L (3.5-5.5); Sodium, Blood 134 mmol/L (136-145)
--- NOTE | 2020-09-27 18:19 | NUR ---
PT CONFUSED BUT REDIRECTABLE. SHE IS MAX 2 ASSIST TO COMMODE AND WILL USE THE BED JIMÉNEZ. PATIENTS K+ AND NA+ RETURNING TO WNL. PT STRAIGHT CATHED 500 OUT. DARK AND CLOUDY URINE. PT HAS INCREASED CONFUSION EVENING PROGRESSES. PT ON PUREE DIET AND ABLE TO FEED SELF THOUGH NEEDS ENCOURAGMENT. CALL LIGHT WITHIN REACH.
[2020-09-28 05:51] LABS: Albumin, Blood 2.2 g/dL (3.4-5.0); Anion Gap 6 mmol/L (6-16); Blood Urea Nitrogen 45 mg/dL (8-24); Bun/Creatinine Ratio 20.5 (12.0-20.0); CO2, Blood 23 mmol/L (21-32); Chloride, Blood 106 mmol/L (98-108); Glomerular Filtration Rate 22 (60-); Glucose, Blood 81 mg/dL (70-99); Phosphorus, Blood 2.9 mg/dL (2.5-4.9); Sodium, Blood 135 mmol/L (136-145)
--- NOTE | 2020-09-28 05:51 | NUR ---
PATIENT MORE CONFUSED TONIGHT, THINKING DAUGHTER WAS IN ASSISTED, FAMILY HAS LEFT HER, REORIETATION PROVIDED EACH ENCOUNTER, ALERT ONLY TO SELF. RECEIVED ORDER TO BLADDER SCAN PATIENT TOTAL 415ML AND ONE TIME STRAIGHT CATH 600ML/OUTPUT AND TO REBLADDER SCAN AT 1200.
--- NOTE | 2020-09-28 08:00 | NUR ---
pt laying in bed awake alert, oriented to self, cooperative with care, follows commands well, denies pain, lungs are clear in upper gastelum, a bit course in mid field, dim in bases, resp even and unlabored, no cough noted, is on 3 liters 02 via n/c, sats are 99% will turn o2 off and recheck, is difficult to obtain an accurate sat level due to profusion, hrirr, tele in place running afib per monitor, see strip, no edema noted, ppp doppler, cap refill sluggish, iv is infiltrated, will remove, btx4, abd flat soft nontender, attends in place, skin frail, scattered bruising, no open areas, maew, weak, christiano, call light in reach.
--- NOTE | 2020-09-28 08:36 | NUR ---
Multiple unsuccessful attempts to restart peripheral IV after infiltration of powerglide 2 days ago (infiltration of sodium bicarb infusion) and infiltration of IVF today on the one remaining peripheral IV of the right hand. Lab phlebotomists report great difficulty in drawing blood on the pt.
[2020-09-28 08:51] LABS: BASOPHILS ABSOLUTE AUTO 0.05 K/mm3 (0.00-0.23); BASOPHILS PERCENT AUTO 0 % (0-2); EOSINOPHILS ABSOLUTE AUTO 0.01 K/mm3 (0.00-0.68); EOSINOPHILS PERCENT AUTO 0 % (0-6); Hematocrit 34.5 % (33.0-51.0); Hemoglobin 11.1 g/dL (11.5-16.0); IMMATURE GRAN ABSOLUTE AUTO 0.28 K/mm3 (0.00-0.10); IMMATURE GRAN PERCENT AUTO 2 % (0-1); LYMPHOCYTES ABSOLUTE AUTO 0.98 K/mm3 (0.84-5.20); LYMPHOCYTES PERCENT AUTO 5 % (21-46); MONOCYTES ABSOLUTE AUTO 0.89 K/mm3 (0.16-1.47); MONOCYTES PERCENT AUTO 5 % (4-13); Mean Corpuscular HGB 28.4 pg (26.0-34.0); Mean Corpuscular HGB Conc 32.2 g/dL (31.5-36.5); Mean Corpuscular Volume 88 fL (80-100); Mean Platelet Volume 12.1 fL (9.1-12.4); NEUTROPHILS ABSOLUTE AUTO 16.61 K/mm3 (1.96-9.15); NEUTROPHILS PERCENT AUTO 88 % (41-73); NRBC ABSOLUTE 0.13 K/mm3 (0.00-0.02); NRBC Auto 0.7 /100 WBC (0.0-0.2); Platelet Count 248 K/mm3 (150-400); RDW Coefficient Variation 20.5 % (11.7-14.2); RDW Standard Deviation 62.7 fL (35.1-46.3); Red Blood Cell Count 3.91 M/mm3 (3.80-5.20); White Blood Cell Count 18.82 K/mm3 (4.00-11.30)
[2020-09-28] MEDS ORDERED: MASOPHEN325 M3 PO (11:40)
[2020-09-28] MEDS ORDERED: VISBIOME 112.51 EACH PO (11:41)
[2020-09-28] MEDS ORDERED: MACRODANTIN50 M1 PO (11:42)
--- NOTE | 2020-09-28 12:37 | NUR ---
pt has been discharged to home, iv was removed intact earlier, daughter and spouce are here to take her home, went over discharge instructions with the daughter she verbalized understanding, and is getting her dressed. will leave via wheelchair with cns with all belongings, new medications have been called into the pharmacy.
[2020-09-29] MEDS ORDERED: FLUC150A PO (04:09)
[2020-09-29] MEDS ORDERED: VISBIOME 112.51 EACH PO (04:09)
[2020-09-29] MEDS ORDERED: Nitrofurantoin100 M1 PO (04:09)
== END 2020-09-28 13:00 | disposition home health service (06) | DRG 871 ==
LOC: ER 12:07 → PCU 17:19
PROVIDERS: Emergency Medicine; ADMIT Internal Medicine
DX: A41.81 Sepsis due to Enterococcus (principal); G93.41 Metabolic encephalopathy; N17.9 Acute kidney failure, unspecified; E87.1 Hypo-osmolality and hyponatremia; N39.0 Urinary tract infection, site not specified; E87.2 Acidosis; Z66 Do not resuscitate; N18.30 Chronic kidney disease, stage 3 unspecified; E86.0 Dehydration; E87.5 Hyperkalemia; I12.9 Hypertensive chronic kidney disease with stage 1 through stage 4 chronic kidney disease, or unspecified chronic kidney disease; E78.5 Hyperlipidemia, unspecified; G47.33 Obstructive sleep apnea (adult) (pediatric); J44.9 Chronic obstructive pulmonary disease, unspecified; Z93.2 Ileostomy status; F32.9 Major depressive disorder, single episode, unspecified; M19.90 Unspecified osteoarthritis, unspecified site; K21.9 Gastro-esophageal reflux disease without esophagitis; I48.91 Unspecified atrial fibrillation; E03.9 Hypothyroidism, unspecified; Z79.899 Other long term (current) drug therapy; Z99.81 Dependence on supplemental oxygen; Z96.643 Presence of artificial hip joint, bilateral; Z98.890 Other specified postprocedural states; Z90.49 Acquired absence of other specified parts of digestive tract; Z87.891 Personal history of nicotine dependence
CPT/HCPCS: 0097U; 36415; 51701; 71045; 74176; 80048; 80053; 80069; 81001; 82570; 82947; 83605; 83690; 83735; 84300; 85025; 87040; 87077; 87086; 87186; 92610; 93005; 93010; 94640; 94664; 94762; 96365; 96375; 99285-25; A9270; C1751; J0610; J0696; J1644; J1720; J1815; J7030; J7070

== ENCOUNTER 2020-09-28 19:36 | Observation (INO) | payer OTHER ==
[~2020-09-28] VITALS: Ht 167.6 cm; Wt 82.6 kg
[~2020-09-28 19:36] MED LIST changes: +MACRODANTIN50 M1 PO; +MASOPHEN325 M3 PO; +NYSTATIN15 GM TOP; +VISBIOME 112.51 EACH PO
[2020-09-28 22:11] LABS: BASOPHILS ABSOLUTE AUTO 0.07 K/mm3 (0.00-0.23); BASOPHILS PERCENT AUTO 0 % (0-2); EOSINOPHILS ABSOLUTE AUTO 0.01 K/mm3 (0.00-0.68); EOSINOPHILS PERCENT AUTO 0 % (0-6); Hematocrit 33.2 % (33.0-51.0); Hemoglobin 10.9 g/dL (11.5-16.0); IMMATURE GRAN ABSOLUTE AUTO 0.51 K/mm3 (0.00-0.10); IMMATURE GRAN PERCENT AUTO 3 % (0-1); LYMPHOCYTES ABSOLUTE AUTO 0.66 K/mm3 (0.84-5.20); LYMPHOCYTES PERCENT AUTO 4 % (21-46); MONOCYTES ABSOLUTE AUTO 0.94 K/mm3 (0.16-1.47); MONOCYTES PERCENT AUTO 5 % (4-13); Mean Corpuscular HGB 28.3 pg (26.0-34.0); Mean Corpuscular HGB Conc 32.8 g/dL (31.5-36.5); Mean Corpuscular Volume 86 fL (80-100); Mean Platelet Volume 10.8 fL (9.1-12.4); NEUTROPHILS ABSOLUTE AUTO 15.71 K/mm3 (1.96-9.15); NEUTROPHILS PERCENT AUTO 88 % (41-73); NRBC ABSOLUTE 0.09 K/mm3 (0.00-0.02); NRBC Auto 0.5 /100 WBC (0.0-0.2); Platelet Count 234 K/mm3 (150-400); RDW Coefficient Variation 20.1 % (11.7-14.2); RDW Standard Deviation 60.8 fL (35.1-46.3); Red Blood Cell Count 3.85 M/mm3 (3.80-5.20)
[2020-09-28 22:31] LABS: Albumin, Blood 2.4 g/dL (3.4-5.0); Albumin/Globulin Ratio 0.8 (0.8-1.8); Bilirubin, Total 0.7 mg/dL (0.1-1.0); Bun/Creatinine Ratio 21.1 (12.0-20.0); Calcium, Blood 8.8 mg/dL (8.5-10.1); Creatinine, Blood 2.13 mg/dL (0.40-1.00); Globulin, Blood 3.1 g/dL (2.2-4.0); Potassium, Blood 3.7 mmol/L (3.5-5.5); Total Protein, Blood 5.5 g/dL (6.4-8.2)
[2020-09-29] MEDS ORDERED: VISBIOME 112.51 EACH PO (04:09)
[2020-09-29] MEDS ORDERED: FLUC150A PO (04:09)
[2020-09-29] MEDS ORDERED: Nitrofurantoin100 M1 PO (04:09)
[2020-09-29 06:11] LABS: BASOPHILS ABSOLUTE AUTO 0.06 K/mm3 (0.00-0.23); BASOPHILS PERCENT AUTO 0 % (0-2); EOSINOPHILS ABSOLUTE AUTO 0.01 K/mm3 (0.00-0.68); EOSINOPHILS PERCENT AUTO 0 % (0-6); Hematocrit 32.5 % (33.0-51.0); Hemoglobin 10.5 g/dL (11.5-16.0); IMMATURE GRAN ABSOLUTE AUTO 0.36 K/mm3 (0.00-0.10); IMMATURE GRAN PERCENT AUTO 2 % (0-1); LYMPHOCYTES ABSOLUTE AUTO 0.98 K/mm3 (0.84-5.20); LYMPHOCYTES PERCENT AUTO 7 % (21-46); MONOCYTES PERCENT AUTO 7 % (4-13); Mean Corpuscular HGB 28.5 pg (26.0-34.0); Mean Corpuscular HGB Conc 32.3 g/dL (31.5-36.5); Mean Corpuscular Volume 88 fL (80-100); Mean Platelet Volume 11.7 fL (9.1-12.4); NEUTROPHILS PERCENT AUTO 83 % (41-73); NRBC ABSOLUTE 0.07 K/mm3 (0.00-0.02); NRBC Auto 0.5 /100 WBC (0.0-0.2); Platelet Count 243 K/mm3 (150-400); RDW Coefficient Variation 20.1 % (11.7-14.2); RDW Standard Deviation 63.2 fL (35.1-46.3); Red Blood Cell Count 3.69 M/mm3 (3.80-5.20); White Blood Cell Count 14.91 K/mm3 (4.00-11.30)
[2020-09-29 06:36] LABS: Albumin, Blood 2.3 g/dL (3.4-5.0); Albumin/Globulin Ratio 0.8 (0.8-1.8); Bilirubin, Total 0.7 mg/dL (0.1-1.0); Bun/Creatinine Ratio 21.3 (12.0-20.0); Calcium, Blood 8.7 mg/dL (8.5-10.1); Creatinine, Blood 2.07 mg/dL (0.40-1.00); Globulin, Blood 2.9 g/dL (2.2-4.0); Potassium, Blood 3.6 mmol/L (3.5-5.5); Total Protein, Blood 5.2 g/dL (6.4-8.2)
--- NOTE | 2020-09-29 06:41 | NUR ---
ASSUMPTION OF CARE PT ARRIVED TO ICU FROM ER VIA GURNEY. TX TO ICU BED VIA SLIDER SHEET. ADMITTED DUE TO PROPOFOL INFILTRATION DURING HIP REDUCTION IN ER RESULTING IN DECREASED LOC. PT ALERT TO PERSON UPON ARRIVAL WHICH IS PTS NORM PER DAUGHTER, SWETHA. PT QUICKLY BACK TO SLEEP WITH DECREASED STIMULI, BUT WAKENS EASILY VIA VERBAL STIMULUS. PT DENIES PAIN AT THIS TIME. KNEE IMMOBILIZER ON L KNEE PER DR VALDOVINOS. KHAN CATH PATENT DRAINING YELLOW URINE. COLOSTOMY BAG DRAINING BROWN, LIQUID URINE. PT ON 2LPM O2 VIA NC c O2 SATS >90%. VSS, WILL CONTINUE TO MONITOR. REPORT TO ONCOMING NURSE.
--- NOTE | 2020-09-29 08:37 | NUR ---
AM NOTE.... ASSUMED CARE OF PT AT 0700. PT IS SLEEPY AND WAKES TO VERBAL STIMULI, PT IS CONFUSED AT BASELINE, PT THINKS SHE IS AT HOME. PT WILL RESPOND TO QUESTIONS BUT WON'T KEEP HER EYES OPEN WHEN TALKING WITH STAFF. PT DENIES ANY PAIN AT THIS TIME. PT IS IN AFIB WITH CONTROLLED RATES IN THE 80'S-100'S. BP STABLE ON THE RIGHT ARM, UNABLE TO GET A BP ON THE LEFT ARM AT THIS TIME. PT HAS DEPENDENT EDEMA NOTED TO HER HANDS. PT IS ON 2L NC WHICH IS HER HOME DOSE WITH O2 SATS >90%. L/S COARSE AND DIM T/O VERY DIM IN THE BASES. PT'S BT PRESENT AND HYPERACTIVE, ABD IS SOFT AND TENDER TO PALP. PT'S COLOSTOMY IS PATENT AND DRAINING BROWN LIQUID STOOLS. KHAN IS PATENT AND DRAINING YELLOW URINE TO GRAVITY. PT HAS NS RUNNING AT 75MLS/HR. WILL CONTINUE TO MONITOR.
--- NOTE | 2020-09-29 13:38 | NUR ---
PT UPDATE... PT MORE AWAKE AND ALERT THAN EARLIER THIS SHIFT BUT STILL WITH SOME CONFUSION WHICH IS HER BASELINE. PT WAS ABLE TO PARTICIPATE WITH CARE DURING HER BEDBATH, PT WAS ABLE TO FEED HERSLEF AND EAT SOME OF HER LUNCH. WILL CONTINUE TO SHADY.
--- NOTE | 2020-09-29 15:31 | NUR ---
PT UPDATE... PT'S RIGHT AC IV INFILTRATED, THE PT WAS INFORMED THE IV WAS NO LONGER WORKING AND BECAME EMOTIONAL ASKING IF WE HAD TO "KEEP POKING ME AGAIN." DR. CHANG WAS CALLED AND NOTIFIED OF THE PT'S CONDITION, SITUATION AND REQUEST TO NOT HAVE TO BE "POKED" AGAIN. DR. CHANG STATED THAT SHE DID NOT HAVE TO HAVE IV ACCESS AT THIS TIME. PT'S PO MEDS WERE STARTED PER HER HOME MEDS. PT'S DAUGHTER AND AT THE BEDSIDE TO VISIT WITH THE PT FOR HER BIRTHDAY. PT'S DAUGHTER EXPRESSED CONCERN TO THIS RN ABOUT THE PT AND FAMILY'S ABILITY TO MANAGE HER CARE AT HOME. PT/OT CONSULTED. PT IS TO TRANSFER TO SURGICAL FLOOR ROOM 227, REPORT CALLED TO PANDA WRIGHT. ALL OF PT'S BELONGINGS PACKED AND SENT WITH THE PT.
--- NOTE | 2020-09-29 17:37 | NUR ---
SHIFT SUMMARY RECENT TRANSFER FROM ICU. PT WORKED WITH PHYSICAL THERAPY, IS A STAND PIVOT W 2PP MAX ASSIST TO BSC/CHAIR/BED. KHAN PATENT & DRAINING, STAT LOCK ON, OFF FLOOR. ALISSON PO. DENIES PAIN. A&O1-2, PLEASANT, COOPERATIVE, FAMILY AT BEDSIDE. TELEPHONE CALL WITH DR VALDOVINOS RE WB STATUS. NEW ORDER 50% WB POSTERIOR HIP PRECAUTIONS, WITH KNEE IMMOBILIZER. WILL REPORT TO ONCOMING NOC RN.
--- NOTE | 2020-09-30 06:17 | NUR ---
SHIFT SUMMARY AOX2-3. VSS. MILD HYPOTENSIVE BUT PT IS ASYMPTOMATIC. PT DENIES CHEST PAIN, DIZZINESS, SWEATS, NAUSEA, AND SOB. PT REPORTS MILD PAIN ON LLE. PAIN MANAGED WITH TYLENOL. TELE IN PLACED, AFIB AT 90'S. PT SLEPT GOOD T/O SHIFT. OSTOMY BAG PUTTING OUT BROWN LIQUID STOOL WITH 600ML. IT WAS LEAKING IN THE MORNING SO I HAD TO PLACE A NEW APPLIANCE. KHAN CATH WAS DC'D WELL. PT TOLERATED IT WELL WITH AN OUTPUT OF 350ML. ATTEND IN PLACE. CALL LIGHT WITHIN REACH. WILL PROVIDE REPORT ONCOMING NURSE.
[2020-09-30 13:40] LABS: BASOPHILS ABSOLUTE AUTO 0.05 K/mm3 (0.00-0.23); BASOPHILS PERCENT AUTO 1 % (0-2); EOSINOPHILS ABSOLUTE AUTO 0.13 K/mm3 (0.00-0.68); EOSINOPHILS PERCENT AUTO 1 % (0-6); Hematocrit 33.7 % (33.0-51.0); Hemoglobin 10.7 g/dL (11.5-16.0); IMMATURE GRAN ABSOLUTE AUTO 0.48 K/mm3 (0.00-0.10); IMMATURE GRAN PERCENT AUTO 5 % (0-1); LYMPHOCYTES PERCENT AUTO 11 % (21-46); MONOCYTES ABSOLUTE AUTO 0.98 K/mm3 (0.16-1.47); MONOCYTES PERCENT AUTO 9 % (4-13); Mean Corpuscular HGB 28.2 pg (26.0-34.0); Mean Corpuscular HGB Conc 31.8 g/dL (31.5-36.5); Mean Corpuscular Volume 89 fL (80-100); Mean Platelet Volume 11.4 fL (9.1-12.4); NEUTROPHILS ABSOLUTE AUTO 7.83 K/mm3 (1.96-9.15); NEUTROPHILS PERCENT AUTO 73 % (41-73); NRBC ABSOLUTE 0.11 K/mm3 (0.00-0.02); Platelet Count 234 K/mm3 (150-400); RDW Coefficient Variation 20.1 % (11.7-14.2); RDW Standard Deviation 63.7 fL (35.1-46.3); White Blood Cell Count 10.67 K/mm3 (4.00-11.30)
[2020-09-30 13:55] LABS: Bun/Creatinine Ratio 22.9 (12.0-20.0); Calcium, Blood 9.2 mg/dL (8.5-10.1); Creatinine, Blood 1.75 mg/dL (0.40-1.00); Magnesium, Blood 1.3 mg/dL (1.6-2.4)
--- NOTE | 2020-09-30 15:00 | NUR ---
TELEPHONE CALL WITH HOSPITALIST R/T FAMILY REQUESTING HOSPICE FOR PT. NEW ORDERS RECEIVED: PALLIATIVE CARE CONSULT, DC MAG AND IVF (UNABLE TO OBTAIN IV), PLACE KHAN CATHETER.
--- NOTE | 2020-09-30 16:25 | NUR ---
called to meet [facility] family. They were scheduled for hospice intake before event. they had questions on hospice. We reviewed differnces between hospice and HH. pt does not want to suffer from end stage renal disease symptoms or persure dialysis. pt hand are bluish and puffy she states it is getting worse. She struggles with urinry retention. family want consult with [facility] advised will put in the consult and will fax a packet to [facility]. Hopefully intake for tomorrow.
--- NOTE | 2020-09-30 18:05 | NUR ---
SHIFT SUMMARY PT A&OX2-3, PLEASANT AND COOPERATIVE WITH CARE. S/P L HIP REDUCTION, PAIN MANAGED WITH TYLENOL. TRANSFERS STAND PIVOT 50% WB/IMMOBILIZER ON, W/2 PP MAX ASSIST W/FWW & GB, TO CHAIR/BSC/BED. ALISSON PO, ENCOURAGED PO FLUIDS INTAKE T/O SHIFT. KHAN PATENT & DRAINING YELLOW URINE, STAT LOCK ON, OFF FLOOR. PALLIATIVE CARE MET WITH PT AND FAMILY TODAY; PLAN FOR SAFE DC HOME WITH HOSPICE. WILL REPORT TO NEXT RN.
--- NOTE | 2020-09-30 19:45 | NUR ---
RECEIVED REPORT AND ASSUMED CARE OF PT. SHE IS LYING QUIETLY IN BED, DENIES ANY NEEDS AT THIS TIME. COMING UP TO SAY MARY. CALL LIGHT IN REACH. WCTM.
--- NOTE | 2020-10-01 05:23 | NUR ---
SHIFT SUMMARY: PARESH AROUSES EASILY AND RESPONDS APPROPRIATELY, SHE IS ORIENTED TO SELF, REORIENTS EASILY. SHE IS ABLE TO MAKE HER NEEDS KNOWN. TOLERATING PO INTAKE WELL, SWALLOWS PILLS WITH APPLESAUCE, KHAN PATENT, COLOSTOMY PATENT. SHE DENIES ANY NEED FOR PAIN MEDICATION THIS SHIFT. VSS, MAINTAINING SATS ON 2 L VIA NC. SHE IS LYING IN BED WITH THE CALL LIGHT IN REACH. WILL REPORT TO DAY SHIFT RN.
[2020-10-01 09:43] LABS: Hematocrit 32.4 % (33.0-51.0)
[2020-10-01 10:00] LABS: Anion Gap 7 mmol/L (6-16); Blood Urea Nitrogen 36 mg/dL (8-24); Bun/Creatinine Ratio 22.9 (12.0-20.0); CO2, Blood 19 mmol/L (21-32); Chloride, Blood 109 mmol/L (98-108); Creatinine, Blood 1.57 mg/dL (0.40-1.00); Glomerular Filtration Rate 33 (60-); Glucose, Blood 98 mg/dL (70-99); Magnesium, Blood 1.3 mg/dL (1.6-2.4); Phosphorus, Blood 2.3 mg/dL (2.5-4.9); Potassium, Blood 4.2 mmol/L (3.5-5.5); Sodium, Blood 135 mmol/L (136-145)
--- NOTE | 2020-10-01 15:16 | NUR ---
FAMILY MEMBERS SWETHA AND PT AT BEDSIDE. SPOKE WITH THEM AND UPDATED FAMILY ON PLAN FOR DISCHARGE AT THIS TIME. PT TO DC HOME ON HOSPICE AROUND NOON TOMORROW PER PROFESSOR OF HISTORY.
--- NOTE | 2020-10-01 18:29 | NUR ---
SUMMARY: NO ACUTE CHANGE TODAY. VSS, PT IS A/O, FORGETFUL BUT EASILY REORIENTED, PT USES CALL LIGHT. CMS INTACT TO LLE, LEG IN IMMOBILIZER. PT TURNED Q2 TODAY, OFFERED UP TO CHAIR AND PT REFUSED. GOOD OUTPUT FROM COLOSTOMY TODAY, STOOL IS GRAY AND LIQUID. PT TOLERATING DIET, NO N/V. TELE DC'D TODAY, NO ACUTE EVENTS. PT HAS DENIED PAIN TODAY. PLAN IS TO DC HOME TOMORROW, AND FAMILY IS AWARE. WILL CTM AND REPORT TO VIVIAN RN.
--- NOTE | 2020-10-01 20:26 | NUR ---
review of hospice conversation and pt and family request with hospitalist. plan is to have [facility] initiate hospice plan with pt as they have been working with her. Called [facility] and review physican concerns. Their approacha was based on pt expressions of wanting to be haome and better quality of life and fear of dialysis. Will continue to follow.
--- NOTE | 2020-10-02 04:24 | NUR ---
SHIFT SUMMARY NO ACUTE CHANGES THIS SHIFT. PT DENIES PAIN TO LLE. LLE REMAINS IN IMMOBILIZER. PT WITH GOOD SENSATION AND ABLE TO WIGGLE TOES AND FLEX FEET. KHAN PATENT. ON BASELINE O2. PLAN TO DISCHARGE HOME TODAY ON HOSPICE.
--- NOTE | 2020-10-02 07:00 | NUR ---
RECVD REPORT FROM PREVIOUS SHIFT ADRIANA CLAIRE, PT SLEEPING IN BED, CALL LIGHT WITHIN REACH, BED RAILS UP X 2, BED IN LOWEST POSITION, WHITEBOARD UPDATED
--- NOTE | 2020-10-02 08:15 | NUR ---
pt's son called while this RN was in the room, requested to have an update which was provided; reported pt's lab results, urine output, expected dc today.
--- NOTE | 2020-10-02 09:20 | NUR ---
Dr Brown and specialist wound care rounding on pt
--- NOTE | 2020-10-02 10:47 | NUR ---
family in room with pt. awaiting DC home to hospice via ambulance
[2020-10-02] MEDS ORDERED: MAGNESIUM OXID400 M1 PO (11:21)
--- NOTE | 2020-10-02 11:36 | NUR ---
pt transported to wheelchair van for transport home on hospice; spouse and daughter transporting pt's belongings to their own vehicle. 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
== END 2020-10-02 11:30 | disposition home or self-care (01) ==
LOC: ER 19:36 → ICUW 19:37 → ER 09-29 03:45 → ICUW 09-29 04:45 → SURS 09-29 15:34 → ICUW 09-29 15:34 → SURS 10-02 11:30
PROVIDERS: Emergency Medicine; Internal Medicine; ADMIT Internal Medicine
DX: T84.021A Dislocation of internal left hip prosthesis, initial encounter (principal); R53.1 Weakness; G92 Toxic encephalopathy; R53.83 Other fatigue; T41.3X5A Adverse effect of local anesthetics, initial encounter; E86.0 Dehydration; I12.9 Hypertensive chronic kidney disease with stage 1 through stage 4 chronic kidney disease, or unspecified chronic kidney disease; N18.30 Chronic kidney disease, stage 3 unspecified; E83.42 Hypomagnesemia; D64.9 Anemia, unspecified; E83.39 Other disorders of phosphorus metabolism; E03.9 Hypothyroidism, unspecified; J44.9 Chronic obstructive pulmonary disease, unspecified; E66.9 Obesity, unspecified; G47.33 Obstructive sleep apnea (adult) (pediatric); K21.9 Gastro-esophageal reflux disease without esophagitis; I48.91 Unspecified atrial fibrillation; S72.142D Displaced intertrochanteric fracture of left femur, subsequent encounter for closed fracture with routine healing; N39.0 Urinary tract infection, site not specified; B95.2 Enterococcus as the cause of diseases classified elsewhere; W01.0XXA Fall on same level from slipping, tripping and stumbling without subsequent striking against object, initial encounter; Z96.643 Presence of artificial hip joint, bilateral; Z87.891 Personal history of nicotine dependence; Z68.32 Body mass index [BMI] 32.0-32.9, adult; Z86.69 Personal history of other diseases of the nervous system and sense organs; Z16.21 Resistance to vancomycin; Z66 Do not resuscitate; Z93.3 Colostomy status; Z87.19 Personal history of other diseases of the digestive system; Z99.81 Dependence on supplemental oxygen
CPT/HCPCS: 27250; 36415; 51702; 73502; 73700; 76000; 80048; 80053; 80069; 83735; 85014; 85018; 85025; 93005; 93010; 94640; 94760; 96365; 96372; 96375; 97163; 97530; 99152; 99285-25; A9270; G0378; J1650; J2704; J3475; J7030